=== PATIENT | female | born 1940 | race Caucasian/White ===

== ENCOUNTER → 2024-03-31 10:52 | Outpatient (REF) | payer MEDICARE, BC, SELFPAY ==
[2024-03-31 11:38] LABS: % Basophils 0.8 % (0-2); % Immature Granulocytes 0.3 % (0-0.5); % Lymphocytes 19.1 % (20.5-51.1); % Monocytes 10.5 % (1.7-9.3); % Neutrophils 66.3 % (42.2-75.2); Absolute Eosinophils 0.1 10^3/uL (0-0.7); Absolute Lymphocytes 0.7 10^3/uL (1.2-3.4); Absolute Monocytes 0.4 10^3/uL (0.1-0.6); Absolute Neutrophils 2.4 10^3/uL (1.4-6.5); Hematocrit 46.6 % (37.0-47.0); Hemoglobin 15.6 g/dL (12.0-16.0); Mean Corp Hgb Conc. 33.5 g/dL (33.0-37.0); Mean Corpuscular Hgb 31.3 pg (27.0-31.0); Mean Corpuscular Volume 93.4 fL (81.0-99.0); Mean Platelet Volume 12.2 fL (7.4-10.4); Nucleated Red Blood Cells % 0 %; Platelet Count 119 10^3/uL (130-400); Red Blood Cell Count 4.99 10^6/uL (4.20-5.40); Red Cell Dist. Width 14.6 % (11.5-14.5); White Blood Cell Count 3.6 10^3/uL (4.8-10.8)
[2024-03-31 11:50] LABS: INR 1.04; PT 13.4 Sec (11.4-14.6)
[2024-03-31 12:15] LABS: Glycohemoglobin (HgbA1c) 5.7 % (4.0-5.6)
[2024-03-31 12:58] LABS: ALT (SGPT) 28 U/L (0-35); AST (SGOT) 40 U/L (14-36); Albumin 4.8 g/dl (3.5-5.0); Alkaline Phosphatase 141 U/L (38-126); Blood Urea Nitrogen 16 mg/dl (7-17); Calcium 9.6 mg/dl (8.4-10.2); Carbon Dioxide 28 mmol/L (22-30); Chloride 99 mmol/L (98-107); Glucose 101 mg/dl (70-99); HDL Cholesterol 84 mg/dl; LDL Cholesterol, Calculated 132 mg/dl; Potassium 4.2 mmol/L (3.5-5.1); Sodium 138 mmol/L (135-145); Total Cholesterol 240 mg/dl (50-199); Total Protein 7.8 g/dl (6.3-8.2); Triglyceride 123 mg/dl (10-149); Very Low Density Lipoprotein 24 mg/dl (0-30); eGFR > 60.00
[2024-03-31 13:18] LABS: TSH Reflex To Free T4 4.02 uIU/ml (0.47-4.68)
== END ==
LOC: REG 10:52
PROVIDERS: ATTENDING PHYSICIAN Family Medicine
DX: K70.30 Alcoholic cirrhosis of liver without ascites (principal); D69.6 Thrombocytopenia, unspecified; R73.03 Prediabetes; N28.9 Disorder of kidney and ureter, unspecified; E78.00 Pure hypercholesterolemia, unspecified; E03.9 Hypothyroidism, unspecified
CPT/HCPCS: 36415; 80053; 80061; 83036; 84443; 85025; 85610

== ENCOUNTER 2024-04-15 20:10 | Inpatient (IN) | payer MEDICARE, BC, SELFPAY ==
[2024-04-15] VITALS (7 sets, daily range): BP systolic 103–152; BP diastolic 54–82; BMI 31.1; BMI 31.2
[2024-04-15] MEDS: DUONEB 3 ML INH ×2 (17:39→21:47)
--- NOTE | 2024-04-15 17:40 | ED.GENMED ---
History of Present Illness
General
Chief Complaint: Cough
Time Seen by Provider: 04/15/24 17:16
Travel History
Have you had any contact with someone who has COVID-19?: No
Do you have any symptoms of coronavirus? Fever > 100 degrees, chills, cough, shortness of breath, sore throat, loss of taste or smell, muscle aches, or headache?: No
History of Present Illness
History of Present Illness:
83-year-old female with history of COPD and hypothyroidism presents to the emergency department for evaluation of shortness of breath over the past 3 to 4 days. She notes that the symptoms began with a fever that is since resolved. Cough is
generally nonproductive. She does admit that she has been feeling depressed for some time and has not been taking any of her medications as she is supposed to. She feels generally weak and fatigued. Her daughter is concerned that she has been
noncompliant with her home medications, apparently she did not answer the phone today and thus the daughter went to visit her and noted that she was visibly short of breath. She was given a DuoNeb and 10 mg of dexamethasone IV prior to arrival in
the ER. Patient denies any SI or HI
Past History
Past History
ED Past Medical History: HTN, Hypercholesterolemia and Other (Cirrhosis)
ED Past Surgical History: Other (Noncontributory)
Social History
Tobacco: Non-smoker
Alcohol: None
Drug: None
Personal:
Living: with family
Employment: Retired
Family History
Family History: Other (Noncontributory)
Review of Systems
Review of Systems
Allergies reviewed?: Yes
All Other Systems: ROS reviewed and negative except as documented in HPI and ROS
Phy Exam
Physical Exam
Physical Exam:
GEN: Well appearing, NAD, WDWN
Eyes: PERRLA, EOMs intact, no scleral icterus
HENT: NCAT, oral mucosa moist
Lungs: Tachypneic, no accessory muscle use, coarse expiratory wheezes heard throughout all lung randolph
Cardiac: RRR, no M/R/G, no peripheral edema. Radial pulses 2+ bilat
Abdomen: S, NT, ND, NABS, no masses or hepatosplenomegaly
Neuro: AO x 3, no focal deficits to BUE/BLE, normal sensation throughout
MSK: No gross deformity or ecchymosis. No edema. No digital clubbing
Skin: No rashes, petechiae. Normal color, no pallor or jaundice.
Psych: Calm, cooperative, proper hygiene
Course
Orders/Labs/Results
Orders:
Orders
04/15/24 17:32
Ipratropium/Albuterol Sulfate [Duoneb] 3 ml INH R NOW ONE
04/15/24 17:33
CR Chest - 2 Views Urgent
Comment:
Reason For Exam: SOB
04/15/24 17:37
COVID-19 Antigen Urgent
Source: Nasal Swab
Complete Blood Count/With Diff Urgent
Comprehensive Metabolic Panel Urgent
Influenza A+B Rapid Molecular Urgent
GILBERTO Source: Nasal Swab
Specimen Description:
Abnormal Lab Results
04/15/24
17:37
MCH 31.5 H pg
(27.0-31.0)
RDW 14.6 H %
(11.5-14.5)
MPV 12.9 H fL
(7.4-10.4)
Abs Immat Gran (auto) 0.1 H 10^3/uL
(0-0.05)
Absolute Neuts (auto) 9.2 H 10^3/uL
(1.4-6.5)
Absolute Lymphs (auto) 0.6 L 10^3/uL
(1.2-3.4)
Immature Gran % 0.9 H %
(0-0.5)
Neutrophils % 87.2 H %
(42.2-75.2)
Lymphocytes % 5.7 L %
(20.5-51.1)
Sodium 132 L mmol/L
(135-145)
Chloride 93 L mmol/L
(98-107)
BUN 25 H mg/dl
(7-17)
Glucose 105 H mg/dl
(70-99)
AST 87 H U/L
(14-36)
ALT 46 H U/L
(0-35)
Alkaline Phosphatase 143 H U/L
(38-126)
04/15/24 17:37
04/15/24 17:37
Vital Signs
Initial and Last Documented VS:
Initial Vital Signs
Temp Pulse Resp BP Pulse Ox
98.4 F 97 18 152/77 95
04/15/24 16:51 04/15/24 16:51 04/15/24 16:51 04/15/24 16:51 04/15/24 16:51
Last Documented Vital Signs
Temp Pulse Resp BP Pulse Ox
98.4 F 92 21 116/65 97
04/15/24 16:51 04/15/24 18:15 04/15/24 18:15 04/15/24 18:00 04/15/24 18:15
MDM/Problems Addressed
MDM/Problems Addressed:
83-year-old female presenting with a COPD exacerbation evidenced by wheezing, likely viral in nature given lack of infiltrate on chest x-ray. Patient's wheezing did improve after DuoNeb treatment after being administered prehospital DuoNeb and IV
steroids. I had a lengthy discussion with the patient and her daughter regarding discharge versus admission, while the patient is comfortable discharge home, her daughter is concerned for her visibly depressed state and medication noncompliance.
Patient denies SI or HI but is visibly withdrawn and does not wish to seek mental health help at this time. She is willing to be admitted to the hospital for further treatment of her COPD exacerbation
*Critical Care Note
Total Time (30-74mins, 75-104mins- exclusive of procedures): Not Applicable
ED Attending Note
-
Portions of this chart may have been created with voice recognition software.� Occasional wrong word or��sound alike� substitutions may have occurred due to the inherent limitations of voice recognition software.
Discharge Plan
Departure
Patient Disposition: Admit
Date of Disposition: 04/15/24
Time of Disposition: 19:07
Admit to: Med/Surg
Presentation/result/management discussed w/ accepting MD/DO: Hospitalist
Discharge Problem:
COPD exacerbation, Depression, Non compliance w medication regimen
Prescriptions:
No Action
amlodipine 5 MG tablet
5 mg PO Daily
aspirin 81 MG tablet,delayed release (DR/EC)
81 mg PO DAILY
levothyroxine 112 MCG tablet
112 mcg PO DAILY
torsemide 20 mg Tablet
10 mg PO DAILY
acetaminophen [Tylenol Extra Strength] 500 mg Tablet
1,000 mg PO DAILYPRN PRN (Reason: mild pain)
escitalopram oxalate 20 mg Tablet
20 mg PO DAILY
Trelegy Ellipta 200-62.5-25 mcg Blister With Device
1 inh INHALATION R DAILY
Patient Comments:
04/15/2024, pt. has not taken this med. recently because she has not been able to access it at home (not able to ambulate) and because of how expensive it is; prescribed 1 puff daily.
Referrals:
UNKNOWN - PT DOES,NOT KNOW [Unknown Provider] -
Interventions
Interventions:
*Risk Screen - Suicide Last Done: 04/15/24 16:51
*Neglect/Abuse Screening Last Done: 04/15/24 16:51
ED- Fall Risk Assessment Last Done: 04/15/24 16:51
ED- Pulmonary Assessment Last Done: 04/15/24 16:51
Discharge Date and Time
Print Language: [place] CITIZ[place]
[2024-04-15 17:43] LABS: % Basophils 0.4 % (0-2); % Immature Granulocytes 0.9 % (0-0.5); % Lymphocytes 5.7 % (20.5-51.1); % Monocytes 5.8 % (1.7-9.3); % Neutrophils 87.2 % (42.2-75.2); Absolute Immature Granulocytes 0.1 10^3/uL (0-0.05); Absolute Lymphocytes 0.6 10^3/uL (1.2-3.4); Absolute Monocytes 0.6 10^3/uL (0.1-0.6); Absolute Neutrophils 9.2 10^3/uL (1.4-6.5); Hematocrit 45.1 % (37.0-47.0); Hemoglobin 15.7 g/dL (12.0-16.0); Mean Corp Hgb Conc. 34.8 g/dL (33.0-37.0); Mean Corpuscular Hgb 31.5 pg (27.0-31.0); Mean Corpuscular Volume 90.4 fL (81.0-99.0); Mean Platelet Volume 12.9 fL (7.4-10.4); Nucleated Red Blood Cells % 0 %; Platelet Count 133 10^3/uL (130-400); Red Blood Cell Count 4.99 10^6/uL (4.20-5.40); Red Cell Dist. Width 14.6 % (11.5-14.5); White Blood Cell Count 10.5 10^3/uL (4.8-10.8)
[2024-04-15 17:58] LABS: COVID-19 Antigen Negative (Negative)
[2024-04-15 18:00] LABS: ALT (SGPT) 46 U/L (0-35); AST (SGOT) 87 U/L (14-36); Albumin 4.2 g/dl (3.5-5.0); Alkaline Phosphatase 143 U/L (38-126); Blood Urea Nitrogen 25 mg/dl (7-17); Calcium 9.3 mg/dl (8.4-10.2); Carbon Dioxide 25 mmol/L (22-30); Chloride 93 mmol/L (98-107); Estimated Creatinine Clearance 50 ml/min; Glucose 105 mg/dl (70-99); Potassium 3.8 mmol/L (3.5-5.1); Sodium 132 mmol/L (135-145); Total Bilirubin 1.1 mg/dl (0.2-1.3); Total Protein 7.5 g/dl (6.3-8.2); eGFR > 60.00
--- NOTE | 2024-04-15 19:17 | HPS.HSE ---
Addendum entered and electronically signed by Hector Sagastume DO 04/15/24 20:49:
Patient seen and examined independently. Agree with findings and plan as set forth by CARRILLO Miller.
Patient is an 83y F with PMH significant for COPD, hypertension, CKD III and depression who presents to ED complaining of fatigue, SOB and audible wheezing over the past 3-4 days. Patient states that she initially started with warm, flushed
feeling on Wednesday. She had diffuse muscle and joint aches and states that she was unable to get out of bed. Patient took some Tylenol and notes that she then broke into a sweat. She has not had further joint / muscle pains or apparent fevers
since that time. Patient continued to remain in bed for the past several days however. She states that she has not been taking her usual medications including her inhalers. She has not been eating / drinking much.
Patient admits to depressed mood.
She has chronic post-nasal drip. No significant cough. No other current complaints or concerns.
Ass:
COPD with Acute Exacerbation
Hypertension
Anxiety / Depression
CKD III
Hepatic Cirrhosis
Chronic Alcohol Use Disorder
Hypothyroidism
Obesity
Plan:
Admit for further evaluation and treatment.
IV steroids, nebs, O2 as needed, etc.
Consider CT chest / Pulm eval if wheezing persists despite steroid therapy.
Resume usual outpatient medications that patient has been without for the past 5 days.
Psych evaluation for significant depression / med adjustments.
Follow for clinical improvement.
Addendum entered and electronically signed by CARRILLO Miller 04/15/24 20:37:
in pt tele
Original Note:
Family Physician
-
Family Physician: Quincy Phelps Jr.
Chief Complaint
-
Shortness of breath, weakness, wheezing, chills
History of Present Illness
83-year-old female from home, where she lives alone. Complaining of shortness of breath/wheezing over the past 5 days . She states she had chills and put on her finals on Wednesday a.m. then took Tylenol and broke out in a sweat. States she has
been having increased postnasal drip causing a dry cough. She has been so tired that she has not gotten out of bed to take her medications including her Trelegy and albuterol along with Lexapro for the past 5 days. She reports a nonproductive
cough with history of COPD and feeling weak and fatigued. Reports her baseline oxygen is usually 93-94%. En route to the ER by EMS she was given DuoNeb and 10 mg dexamethasone IV. She did not answer her phone today so she went over to visit her.
She reports increased depression since the beginning of March when it would have been her 64nd anniversary. She feels it is worse than it normally is. She has missed her Lexapro for the past 5 days and has not had an adjustment in many many years
that she states. She denies suicidal ideation.
PMH HTN, HLD, COPD, ex-smoker, cirrhosis of liver, depression, Moderate chronic bilateral renal disease/CKD 3 A, AAA, 4.3 cm 01/04/2023, parathyroid adenoma with parathyroidectomy, hypothyroidism, osteoporosis, history of fractures, narrow angle
glaucoma, obesity,
Medical History
Past Medical History
Past Medical History: Reports Other
Additional Past Medical History:
HTN
HLD
COPD
Ex-smoker quit age 62 prior 40-year 1 pack a day
Cirrhosis of liver
Alcohol use drinks 1 martini vodka and remove at night has not had any in 5 days
Depression
Moderate to severe hepatic cirrhosis
CKD 3A
Moderate chronic bilateral renal disease
Fusiform infrarenal abdominal aortic aneurysm 4.2 cm
Parathyroid adenoma with parathyroidectomy
Hypothyroidism
Osteoporosis
history of fractures
narrow angle glaucoma
Obesity
Past Surgical History: Reports Other
Additional Past Surgical History:
Umbilical hernia repair 1960s
Left foot reconstruction December 2010
Bilateral foot surgeries x 4 [id number]
Tonsillectomy adenoidectomy as child
Parathyroidectomy
Social History
Tobacco: Former Smoker (41 pack a day quit age 62)
Alcohol: Daily (1 martini with vodka and Vermouth nightly last drink was 5 days ago 04/10/2024)
Drug: None
Personal: (2 years)
Living: Alone
Employment: Retired
Family History
Family History: Other (Father abdominal aortic aneurysm, ascending aortic aneurysm , mother OR)
Allergies / Home Medications
Allergies reflects when Allergies were last updated in [facility].
Home Medications with original date entered in [facility]
Allergy/Medication List:
Allergies
Allergy/AdvReac Type Severity Reaction Status Date / Time
Sulfa (Sulfonamide Allergy 'almost Verified 04/15/24 16:51
Antibiotics) '
Home Medications
amlodipine 5 mg tablet 5 mg PO Daily 02/01/10
aspirin 81 mg tablet,delayed release 81 mg PO DAILY 08/07/11
levothyroxine 112 mcg tablet 112 mcg PO DAILY 08/07/11
acetaminophen 500 mg tablet (Tylenol Extra Strength) 1,000 mg PO DAILYPRN PRN mild pain 04/15/24
escitalopram oxalate 20 mg tablet 20 mg PO DAILY 04/15/24
fluticasone fur. 200 mcg-umeclid 62.5 mcg-vilant 25 mcg inhalat.powder (Trelegy Ellipta) 1 inh inhalation R DAILY 04/15/24
torsemide 20 mg tablet 10 mg PO DAILY 04/15/24
Review of Systems
-
History Source: Patient and Family (Daughter Hemalatha at bedside)
A 12 point ROS was completed and negative except as noted: Yes
Constitutional: Reports Fatigue and Chills
EENT: Reports Other (Postnasal drip); Denies Sore Throat or Runny Nose
Respiratory: Reports Cough (Nonproductive) and Trouble Breathing (Wheezing)
Cardiac: Denies Chest Pain, Diaphoresis, Palpitations or Syncope
Abdomen/GI: Denies Abdominal Pain, Nausea, Vomiting, Diarrhea, Constipated or Bloody Stools
: Denies Dysuria, Frequency, Flank Pain, Incontinence or Difficulty Voiding
Musculoskeletal: Denies Joint Pain or Edema
Skin: Denies Itching or Rash
Neurological: Reports Weakness (Generalized); Denies Dizzy or Headache
Endocrine: Reports No Symptoms
Hematologic/Lymphatic: Reports No Symptoms
Psych: Reports Calm
Physical Exam
Vital Signs
Vital Signs
Temp Pulse Resp BP Pulse Ox
98.4 F 92 21 116/65 97
04/15/24 16:51 04/15/24 18:15 04/15/24 18:15 04/15/24 18:00 04/15/24 18:15
Physical Exam
General: Conversant, Chills and Obese; No Pain
HEENT: NormoCephalic, Anicteric, PERRLA and No Ptosis
Respiratory: Wheezes (Diffuse throughout both lung randolph expiratory)
Cardiac: S1/S2 and Regular Rhythm; No Murmur, Rub, Gallop or Peripheral Edema
Breast: Deferred by me
GI: Soft, Non Tender, Non Distended, Normal Bowel Sounds and No Hepatosplenomegaly
Rectal: Deferred by Provider
Genito-urinary: Deferred by me
Musculoskeletal: No Clubbing, Cyanosis and No Edema
Skin: Warm and Dry; No Rash or Jaundice
Neuro: AO x 3, No Motor Deficits, Nonfocal/grossly intact, Cranial Nerves Intact and Tremors (Slight tremors to hands); No DTR's Intact & Symmetrical, Slurred Speech or Facial Droop
Psych: Calm
Laboratory Results
-
04/15/24 17:37
04/15/24 17:37
Laboratory Results
Total Bilirubin 1.1 mg/dl (0.2-1.3) 04/15/24 17:37
AST 87 U/L (14-36) H 04/15/24 17:37
ALT 46 U/L (0-35) H 04/15/24 17:37
Alkaline Phosphatase 143 U/L (38-126) H 04/15/24 17:37
Data Reviewed
-
Diagnostic Radiology: Report Reviewed by me
Lab Data: Labs Reviewed by me
Impression/Plan
-
Impression/plan:
Inpatient MedSurg
#Acute on chronic COPD exacerbation
#Ex-smoker
97% RA, HR 92, 116/65
COVID/Flu negative
-Patient follows with Dr. Ibrahim pulmonary
-IV Decadron 10 mg given by EMS, continue Decadron 4 mg every 8 hours
-Continue DuoNebs scheduled and as needed
-Resume patient's Trelegy or equivalent
-PT/OT/case management eval
CXR: No acute cardiopulmonary disease
Moderate tortuosity and calcific atherosclerotic plaque in the thoracic aorta
#Acute on Chronic depression
Denies suicide ideation
-Non compliance with antidepressant Lexapro 20 mg daily x 5 days
-Resume Lexapro 20 mg daily
-Consult psychiatry as patient has had increased depression on 20 mg Lexapro has not had increase in dose in many years
#Daily alcohol use
#Cirrhosis /chronic transaminitis
-Drinks 1 martini with vodka/Vermouth nightly
Last drink was 04/10/2024 5 days ago
-cessation advised
-MSAS screen with protocol, IV thiamine, IV folate
-Follow CMP
Ultrasound abdomen complete January 04, 2023
1. Moderate to severe hepatic cirrhosis
2. Moderate chronic bilateral renal disease
3. Fusiform infrarenal abdominal aortic aneurysm 4.2 cm
#CKD 3 A
Creat 0.9, CrCl 50
Per ultrasound 01/04/2023 moderate chronic bilateral renal disease
#HTN-benign
BP 116/65
-Resume amlodipine 5 mg, torsemide 10 mg daily with hold parameters
-Patient takes prophylactic aspirin 81 mg daily
2D echo 01/06/2020: EF 55 to 60%, normal LVS LVSF, mild LVH, mild to moderate MR, moderate aortic regurg
#Hx Fusiform infrarenal abdominal aortic aneurysm 4.2 cm per abdomen ultrasound 01/04/2023
#HLD
No reported meds
#Hypothyroidism
#Parathyroid adenoma with parathyroidectomy
-Resume levothyroxine 112 mcg daily
#Obesity due to exccess calorie consumption - BMI 31kg
low fat diet , wt loss recommended
#Osteoporosis-continue Tylenol as needed daily
#Hx of fractures
#Narrow angle glaucoma
DVT prophylaxis
Subcu Lovenox
DNR per patient with daughter Hemalatha present
--- NOTE | 2024-04-15 21:37 | PTCARENOTE ---
Pt arrived from ED via stretcher and ambulated w/ rolling walker to bed. Pt is AAOx3, VSS, w/o complaints of pain. Pt is resting comfortably w/ call miner within reach.
[2024-04-15] MEDS: DUONEB INH (21:38)
[2024-04-15] MEDS: TYLENOL 650 MG PO (21:57)
[2024-04-15 22:01] LABS: INR 1.06; PT 13.6 Sec (11.4-14.6)
[2024-04-15 22:02] LABS: APTT 35.7 Sec (23.4-35.0)
[2024-04-15 22:09] LABS: Erythrocyte Sed Rate 39 mm/hour (0-20)
[2024-04-15] MEDS: DECADRON 4 MG IV (22:15)
[2024-04-15 22:17] LABS: GGTP 233 U/L (12-43); Magnesium 2.1 mg/dl (1.6-2.3); Phosphorus 3.1 mg/dl (2.5-4.5)
[2024-04-15 22:23] LABS: B-Hydroxybutyrate 0.26 mmol/L (0.02-0.27)
[2024-04-16] VITALS (8 sets, daily range): BP systolic 100–141; BP diastolic 59–83; PULSE 88; O2SAT 93
[2024-04-16] MEDS: DECADRON 4 MG IV ×3 (05:07→21:15)
[2024-04-16] MEDS: SYNTHROID 112 MCG PO (05:08)
[2024-04-16 06:12] LABS: Urine Albumin Negative (Neg - Trace); Urine Bilirubin Negative (Negative); Urine Character Clear (Clear); Urine Color Yellow; Urine Glucose Negative (Negative); Urine Ketone Negative (Negative); Urine Leukocyte Negative (Negative); Urine Nitrite Negative (Negative); Urine Occult Blood Negative (Negative); Urine Urobilinogen Negative (Neg - 1+)
[2024-04-16] MEDS: SPIRIVA RESPIMAT 2.5 MCG 2 PUFF INH (06:30)
[2024-04-16] MEDS: DUONEB 3 ML INH (06:30)
[2024-04-16] MEDS: SYMBICORT 160/4.5 MCG INHALER 2 PUFF INH ×2 (06:31→19:21)
[2024-04-16 07:56] LABS: Hematocrit 44.1 % (37.0-47.0); Hemoglobin 15.1 g/dL (12.0-16.0); Mean Corp Hgb Conc. 34.2 g/dL (33.0-37.0); Mean Corpuscular Hgb 30.7 pg (27.0-31.0); Mean Corpuscular Volume 89.6 fL (81.0-99.0); Mean Platelet Volume 12.7 fL (7.4-10.4); Nucleated Red Blood Cells % 0 %; Platelet Count 108 10^3/uL (130-400); Red Blood Cell Count 4.92 10^6/uL (4.20-5.40); Red Cell Dist. Width 14.1 % (11.5-14.5); White Blood Cell Count 6.8 10^3/uL (4.8-10.8)
[2024-04-16 08:01] LABS: ALT (SGPT) 53 U/L (0-35); AST (SGOT) 81 U/L (14-36); Albumin 3.8 g/dl (3.5-5.0); Alkaline Phosphatase 144 U/L (38-126); Blood Urea Nitrogen 29 mg/dl (7-17); Calcium 9.3 mg/dl (8.4-10.2); Carbon Dioxide 23 mmol/L (22-30); Chloride 94 mmol/L (98-107); Estimated Creatinine Clearance 55 ml/min; Glucose 174 mg/dl (70-99); HDL Cholesterol 36 mg/dl; LDL Cholesterol, Calculated 129 mg/dl; Sodium 131 mmol/L (135-145); Total Bilirubin 0.7 mg/dl (0.2-1.3); Total Cholesterol 199 mg/dl (50-199); Total Protein 6.9 g/dl (6.3-8.2); Triglyceride 174 mg/dl (10-149); Very Low Density Lipoprotein 34 mg/dl (0-30); eGFR > 60.00
[2024-04-16 08:35] LABS: Band Neutrophils 14 % (0-3); Lymphocytes 8 % (20-51); Monocytes 3 % (2-9); Platelets Checked Yes; Segmented Neutrophils 75 % (42-75)
[2024-04-16 08:36] LABS: Normal RBC Morphology Yes; Total Cells Counted 100
[2024-04-16] MEDS: NORVASC PO (08:50)
[2024-04-16] MEDS: ASPIR LOW (ENTERIC COATED) 81 MG PO (08:51)
[2024-04-16] MEDS: THIAMINE INJECTION 200 MG IV ×2 (08:51→21:15)
[2024-04-16] MEDS: FOLVITE 1 MG PO (08:51)
[2024-04-16] MEDS: LEXAPRO 20 MG PO (08:51)
[2024-04-16] MEDS: DEMADEX 10 MG PO (08:51)
[2024-04-16] MEDS: FLUSH (NSS) 1 FLUSH IV ×2 (08:53→13:35)
--- NOTE | 2024-04-16 10:18 | W.PN.HOSP.TC ---
Today's Communication/Plan
-
see bold
Assessment / Plan
Assessment / Plan
Gen: NAD, Awake and alert
Eyes: EOMI, PERRLA, no scleral icterus.
Neck: supple.
CV: RRR, +S1/S2, no m/r/g.
Resp: CTAB, no rales, wheezes, or rhonchi.
Abd: +BS, soft, NT, ND
Skin: No rashes.
Neuro: CN 2-12 intact, non-focal.
Psych: depressed affect.
CXR: No acute cardiopulmonary disease
Acute COPD exacerbation:
-saturating well on RA
-h/o tobacco abuse disorder
-COVID/Flu negative
-cont IV decadron, likely transition to Prednisone tomorrow
-cont Spiriva/Symbicort
-Albuterol PRN
Acute on chronic depression:
-Denies suicide ideation
-Non compliance with antidepressant Lexapro 20 mg daily x 5 days
-Lexapro now resumed
-Consult psychiatry
Other problems:
Chronic alcoholic cirrhosis: cont thiamine/folate/PRN ativan. Encourage EtOH cessation.
Essential HTN: cont Norvasc
h/o Fusiform infrarenal abdominal aortic aneurysm 4.2 cm per abdomen ultrasound 01/04/2023
Hyperlipidemia
Hypothyroidism: cont Levoxyl
h/o Parathyroid adenoma with parathyroidectomy
Obesity due to excess calories: Encourage weight loss. Affects all aspects of care.
Osteoporosis with h/o fxs
DNR/Lovenox
Anticipated Discharge: Within 24 hours
Subjective/Interval History
-
Date of Service: April 16, 2024
Reports SOB has greatly improved since admission.
Objective Data
-
Labs:
Laboratory Results
04/16/24
06:59
WBC 6.8
Hgb 15.1
Hct 44.1
Plt Count 108 L
Sodium 131 L
Potassium 4.0
Chloride 94 L
Carbon Dioxide 23
BUN 29 H
Creatinine 0.8
Glucose 174 H
Calcium 9.3
Total Bilirubin 0.7
AST 81 H
ALT 53 H
Alkaline Phosphatase 144 H
Vital Signs:
Vital Signs
Temp Pulse Resp BP Pulse Ox
97.6 F 92 18 100/71 94
04/16/24 07:30 04/16/24 08:51 04/16/24 07:30 04/16/24 08:51 04/16/24 10:00
I&O
04/15/24 04/16/24 04/17/24
06:59 06:59 06:59
Intake Total 480 / 480
Balance 480 / 480
[2024-04-16] MEDS: VENTOLIN NEBULES 2.5 MG INH ×4 (11:10→23:35)
--- NOTE | 2024-04-16 11:53 | W.PN.UPDATE ---
Update Note
Progress Note Update
Psychiatric evaluation dictated.
Patient admits to being depressed, related to cleaning out her 's closet and being reminded of her 6o year marriage, he about 2 years ago. Denies hopelessness or suicidal thoughts. She has been on Lexapro 20 mg daily, apparently has not
taken it for about 5 days. She admits to drinking 1 vodka martini daily for many years, even when was alive. It certainly could be more, her GGT was 233.
Affect depressed, mood sad, cries when she talks about . No significant cognitive loss noted.
For now we will F/U.
Would continue the Lexapro 20, watch for hyponatremia as sodium is 131.
Psychotherapy could also help.
--- NOTE | 2024-04-16 11:58 | CM ---
CM met with pt bedside
Pt resides alone in a ranc[place] with 1STE
P notes independence, drives+
Pt has a RW and SPC for use as needed
Pt has hx with [facility] (agency unknown) and hx at [facility]
PCP- Quincy Phelps
Rx- [facility]
PT/OT following with recommendations of [facility]
Referral made to [facility] per her request
CM consult for D/A use- pt notes to have a daily martini
Pt notes she has stopped drinking and declined [facility] referral
Discharge Disposition- home with [facility] ([facility] pending)
[2024-04-16] MEDS: LOVENOX 40 MG SC (17:59)
[2024-04-16] MEDS: BENADRYL 25 MG PO (22:19)
[2024-04-16] MEDS: TYLENOL 650 MG PO (22:22)
[2024-04-17] VITALS (7 sets, daily range): BP systolic 116–153; BP diastolic 58–86
[2024-04-17] MEDS: SYNTHROID 112 MCG PO (06:06)
[2024-04-17] MEDS: DECADRON 4 MG IV ×3 (06:07→21:14)
[2024-04-17 06:24] LABS: % Basophils 0.4 % (0-2); % Immature Granulocytes 1.9 % (0-0.5); % Lymphocytes 1.7 % (20.5-51.1); % Monocytes 5.1 % (1.7-9.3); % Neutrophils 90.9 % (42.2-75.2); Absolute Basophils 0.1 10^3/uL (0-0.2); Absolute Immature Granulocytes 0.3 10^3/uL (0-0.05); Absolute Lymphocytes 0.2 10^3/uL (1.2-3.4); Absolute Monocytes 0.7 10^3/uL (0.1-0.6); Absolute Neutrophils 12.2 10^3/uL (1.4-6.5); Hemoglobin 15.4 g/dL (12.0-16.0); Mean Corpuscular Hgb 31.3 pg (27.0-31.0); Mean Corpuscular Volume 89.4 fL (81.0-99.0); Mean Platelet Volume 13.4 fL (7.4-10.4); Nucleated Red Blood Cells % 0 %; Platelet Count 127 10^3/uL (130-400); Red Blood Cell Count 4.92 10^6/uL (4.20-5.40); Red Cell Dist. Width 14.2 % (11.5-14.5); White Blood Cell Count 13.4 10^3/uL (4.8-10.8)
--- NOTE | 2024-04-17 06:42 | PTCARENOTE ---
Pt oob to bathroom, Hr increased to 149s. Pt short of breath, labored breathing. assisted pt back top bed, HR decreased to 110s. call miner within reach.
[2024-04-17 06:57] LABS: ALT (SGPT) 105 U/L (0-35); AST (SGOT) 193 U/L (14-36); Alkaline Phosphatase 178 U/L (38-126); Blood Urea Nitrogen 35 mg/dl (7-17); Calcium 9.9 mg/dl (8.4-10.2); Carbon Dioxide 24 mmol/L (22-30); Chloride 93 mmol/L (98-107); Estimated Creatinine Clearance 44 ml/min; Glucose 156 mg/dl (70-99); Potassium 4.5 mmol/L (3.5-5.1); Sodium 133 mmol/L (135-145); Total Bilirubin 0.7 mg/dl (0.2-1.3); Total Protein 7.2 g/dl (6.3-8.2)
[2024-04-17] MEDS: SPIRIVA RESPIMAT 2.5 MCG 2 PUFF INH (07:32)
[2024-04-17] MEDS: SYMBICORT 160/4.5 MCG INHALER 2 PUFF INH ×2 (07:32→20:56)
[2024-04-17] MEDS: VENTOLIN NEBULES 2.5 MG INH ×4 (07:32→20:57)
[2024-04-17] MEDS: ASPIR LOW (ENTERIC COATED) 81 MG PO (09:13)
[2024-04-17] MEDS: DEMADEX 10 MG PO (09:13)
[2024-04-17] MEDS: NORVASC 5 MG PO (09:14)
[2024-04-17] MEDS: LEXAPRO 20 MG PO (09:14)
[2024-04-17] MEDS: FOLVITE 1 MG PO (09:14)
[2024-04-17] MEDS: THIAMINE INJECTION 200 MG IV ×2 (09:15→21:12)
--- NOTE | 2024-04-17 11:16 | W.PN.HOSP.TC ---
Today's Communication/Plan
-
Add doxy
IV steroids
monitor HR
Assessment / Plan
Assessment / Plan
Gen: NAD, Awake and alert
Eyes: EOMI, PERRLA, no scleral icterus.
Neck: supple.
CV: RRR, +S1/S2, no m/r/g.
Resp: +exp wheezing b/l
Abd: +BS, soft, NT, ND
Skin: No rashes.
Neuro: CN 2-12 intact, non-focal.
Psych: depressed affect.
CXR: No acute cardiopulmonary disease
Acute COPD exacerbation:
-saturating well on RA
-h/o tobacco abuse disorder
-COVID/Flu negative
-cont IV decadron, likely transition to Prednisone soon
-cont Spiriva/Symbicort
-Albuterol PRN
-with cough. add doxy.
Acute on chronic depression:
-Denies suicide ideation
-Non compliance with antidepressant Lexapro 20 mg daily x 5 days
-Lexapro now resumed
-Consulted psychiatry
Other problems:
Chronic alcoholic cirrhosis: cont thiamine/folate/PRN ativan. Encourage EtOH cessation.
Essential HTN: cont Norvasc
h/o Fusiform infrarenal abdominal aortic aneurysm 4.2 cm per abdomen ultrasound 01/04/2023
Hyperlipidemia
Hypothyroidism: cont Levoxyl
h/o Parathyroid adenoma with parathyroidectomy
Obesity due to excess calories: Encourage weight loss. Affects all aspects of care.
Osteoporosis with h/o fxs
DNR/Lovenox
Anticipated Discharge: Within 24 hours
Subjective/Interval History
-
Date of Service: April 17, 2024
Remains with cough
states breathing has improved
Objective Data
-
Labs:
Laboratory Results
04/17/24
05:15
WBC 13.4 H
Hgb 15.4
Hct 44.0
Plt Count 127 L
Sodium 133 L
Potassium 4.5
Chloride 93 L
Carbon Dioxide 24
BUN 35 H
Creatinine 1.0
Glucose 156 H
Calcium 9.9
Total Bilirubin 0.7
AST 193 H
ALT 105 H
Alkaline Phosphatase 178 H
Vital Signs:
Vital Signs
Temp Pulse Resp BP Pulse Ox
98.1 F 102 16 130/80 93
04/17/24 10:45 04/17/24 10:45 04/17/24 10:45 04/17/24 10:45 04/17/24 10:45
I&O
04/16/24 04/17/24 04/18/24
06:59 06:59 06:59
Intake Total 480 / 480 720 / 720
Balance 480 / 480 720 / 720
Data Reviewed
-
Total Time Spent with Patient (in minutes): 55
[2024-04-17] MEDS: VIBRAMYCIN 100 MG PO ×2 (12:10→21:11)
[2024-04-17] MEDS: LOVENOX 40 MG SC (18:28)
[2024-04-18] MEDS: TYLENOL 650 MG PO (01:05)
[2024-04-18 04:00] VITALS: BP 121/76
[2024-04-18] MEDS: DECADRON 4 MG IV ×2 (05:23→22:16)
[2024-04-18] MEDS: SYNTHROID 112 MCG PO (05:23)
[2024-04-18 06:37] LABS: Hematocrit 44.2 % (37.0-47.0); Hemoglobin 15.2 g/dL (12.0-16.0); Mean Corp Hgb Conc. 34.4 g/dL (33.0-37.0); Mean Corpuscular Hgb 30.8 pg (27.0-31.0); Mean Corpuscular Volume 89.7 fL (81.0-99.0); Mean Platelet Volume 13.1 fL (7.4-10.4); Nucleated Red Blood Cells % 0 %; Platelet Count 148 10^3/uL (130-400); Red Blood Cell Count 4.93 10^6/uL (4.20-5.40); Red Cell Dist. Width 14.6 % (11.5-14.5); White Blood Cell Count 17.4 10^3/uL (4.8-10.8)
[2024-04-18 07:00] VITALS: BP 137/75
[2024-04-18 07:10] LABS: ALT (SGPT) 100 U/L (0-35); AST (SGOT) 107 U/L (14-36); Albumin 3.6 g/dl (3.5-5.0); Alkaline Phosphatase 150 U/L (38-126); Blood Urea Nitrogen 32 mg/dl (7-17); Carbon Dioxide 23 mmol/L (22-30); Chloride 94 mmol/L (98-107); Estimated Creatinine Clearance 40 ml/min; Glucose 179 mg/dl (70-99); Potassium 4.1 mmol/L (3.5-5.1); Sodium 132 mmol/L (135-145); Total Bilirubin 0.8 mg/dl (0.2-1.3); Total Protein 6.6 g/dl (6.3-8.2); eGFR 50.48
[2024-04-18] MEDS: VENTOLIN NEBULES 2.5 MG INH ×4 (07:23→19:57)
[2024-04-18] MEDS: SYMBICORT 160/4.5 MCG INHALER 2 PUFF INH ×2 (07:23→19:57)
[2024-04-18] MEDS: SPIRIVA RESPIMAT 2.5 MCG 2 PUFF INH (07:23)
--- NOTE | 2024-04-18 08:00 | PN.CDI ---
CDI
- -
CDI:
Physician Documentation Request
Admit Date: 04/15/24 20:10
Dear Doctor Pio,
Please review the following and provide your response in the progress notes.
Clinical Indicators:
Pt admitted with COPD exacerbation
Sodium labs are as below / Pt with Chronic alcoholic cirrhosis
04/15/24 04/16/24 04/17/24
17:37 06:59 05:15
Sodium 132 L 131 L 133 L
04/18/24
05:43
Sodium 132 L
Based on the above, could you clarify in the progress notes, the appropriate diagnosis, if significant, that supports the above abnormalities and additional evaluation, monitoring and/or treatment rendered:
Hyponatremia
Abnormal lab value only
Other
Use of terms such as suspected, likely, concern for, or probable (associated with a specific diagnosis that is being evaluated, monitored, or treated as if it exists) are acceptable and can be coded in the inpatient setting, when documented at the
time of discharge.
Thank you,
Kari Camejo RN
CDI Specialist
[facility]
Please use your independent medical judgment in providing your response.
[2024-04-18 08:12] LABS: Absolute Neutrophils -Man Diff 16.7 10^3/uL (1.4-6.5); Band Neutrophils 15 % (0-3); Lymphocytes 2 % (20-51); Monocytes 2 % (2-9); Normal RBC Morphology Yes; Platelets Checked Yes; Segmented Neutrophils 81 % (42-75)
[2024-04-18 08:13] LABS: Total Cells Counted 100
[2024-04-18] MEDS: NORVASC 5 MG PO (09:26)
[2024-04-18] MEDS: FOLVITE 1 MG PO (09:27)
[2024-04-18] MEDS: ASPIR LOW (ENTERIC COATED) 81 MG PO (09:27)
[2024-04-18] MEDS: VIBRAMYCIN 100 MG PO ×2 (09:27→22:14)
[2024-04-18] MEDS: LEXAPRO 20 MG PO (09:27)
[2024-04-18] MEDS: THIAMINE INJECTION 200 MG IV ×2 (09:27→22:15)
[2024-04-18] MEDS: FLUSH (NSS) 2 FLUSH IV ×2 (09:27→09:29)
[2024-04-18] MEDS: DEMADEX PO (09:28)
[2024-04-18 11:10] VITALS: BP 140/70
--- NOTE | 2024-04-18 11:21 | W.PN.UPDATE ---
Update Note
Progress Note Update
Patient seen at bedside, chart reviewed, discussed with staff. Ms. Munoz tells me she feels her mood has improved some and feels less depressed. She does have concerns regarding her breathing even though she has been told it is improving. She
denies any ETOH withdrawal symptoms. She again denies drinking ETOH in excess although family has reportedly raised concerns. She admits forgetting her daily medications on occasions and realizes she feels depressed when she does this. Denies any
SI/SB.
Impression/Plan: Major depressive disorder, recurrent; R/O Alcohol Use disorder - Would continue Lexapro 20mg. We discussed psychotherapy as a useful tool and she will look into this. She does understand she should abstain from ETOH use and does
not feel she needs assistance to do so at this time.
--- NOTE | 2024-04-18 13:14 | W.PN.HOSP.TC ---
Today's Communication/Plan
-
Decrease steroids
Continue with bronchodilators
Continue Lexapro
Bowel regimen
Start disposition efforts
Assessment / Plan
Assessment / Plan
Gen: NAD, Awake and alert
Eyes: EOMI, PERRLA, no scleral icterus.
Neck: supple.
CV: RRR, +S1/S2, no m/r/g.
Resp: +exp wheezing b/l improvement since yesterday
Abd: +BS, soft, NT, ND
Skin: No rashes.
Neuro: CN 2-12 intact, non-focal.
Psych: depressed affect.
CXR: No acute cardiopulmonary disease
Acute COPD exacerbation:
Acute hypoxic respiratory insufficiency
-h/o tobacco abuse disorder
-COVID/Flu negative
-cont IV decadron and decrease frequency to every 12
-cont Spiriva/Symbicort
-Albuterol PRN
-Wean oxygen as tolerated. Home O2 eval prior to discharge.
-with cough. add doxy. Complete course of doxycycline
Acute on chronic depression:
-Denies suicide ideation
-Non compliance with antidepressant Lexapro 20 mg daily x 5 days
-Lexapro now resumed
-Consulted psychiatry
Other problems:
Chronic alcoholic cirrhosis: cont thiamine/folate/PRN ativan. Encourage EtOH cessation.
Essential HTN: cont Norvasc. 140/70
h/o Fusiform infrarenal abdominal aortic aneurysm 4.2 cm per abdomen ultrasound 01/04/2023
Hyperlipidemia
Hypothyroidism: cont Levoxyl
h/o Parathyroid adenoma with parathyroidectomy
Obesity due to excess calories: Encourage weight loss. Affects all aspects of care.
Osteoporosis with h/o fxs
DNR/Lovenox
PT/OT-Home health
Anticipated Discharge: Within 24 hours
Subjective/Interval History
-
Date of Service: April 18, 2024
Placed on oxygen overnight
Denies productive cough
Objective Data
-
Labs:
Laboratory Results
04/18/24
05:43
WBC 17.4 H
Hgb 15.2
Hct 44.2
Plt Count 148
Sodium 132 L
Potassium 4.1
Chloride 94 L
Carbon Dioxide 23
BUN 32 H
Creatinine 1.1 H
Glucose 179 H
Calcium 9.0
Total Bilirubin 0.8
AST 107 H
ALT 100 H
Alkaline Phosphatase 150 H
Vital Signs:
Vital Signs
Temp Pulse Resp BP Pulse Ox
98.2 F 88 16 140/70 93
04/18/24 11:10 04/18/24 11:52 04/18/24 11:52 04/18/24 11:10 04/18/24 11:52
I&O
04/17/24 04/18/24 04/19/24
06:59 06:59 06:59
Intake Total 720 / 720 855 / 855
Balance 720 / 720 855 / 855
Data Reviewed
-
Total Time Spent with Patient (in minutes): 55
[2024-04-18] MEDS: DULCOLAX 10 MG PO (13:25)
[2024-04-18] MEDS: MIRALAX 17 GRAMS PO (13:26)
--- NOTE | 2024-04-18 15:08 | CM ---
patient seen bedside.
patient continues on oxygen 2 liters, not on oxygen at home.
Plan: home, watch for oxygen needs. Denies VN needs. Daughter will transport.
[2024-04-18 16:03] VITALS: BP 113/74
[2024-04-18] MEDS: SENOKOT-S 1 TABLET PO (16:36)
[2024-04-18] MEDS: LOVENOX 40 MG SC (17:00)
[2024-04-18 19:30] VITALS: BP 97/50
[2024-04-18 23:11] VITALS: BP 126/72
[2024-04-19] VITALS (8 sets, daily range): BP systolic 119–158; BP diastolic 53–75; PULSE 65–76; O2SAT 91–92
[2024-04-19] MEDS: SYNTHROID 112 MCG PO (05:53)
[2024-04-19 08:01] LABS: Hematocrit 41.8 % (37.0-47.0); Hemoglobin 14.3 g/dL (12.0-16.0); Mean Corp Hgb Conc. 34.2 g/dL (33.0-37.0); Mean Corpuscular Hgb 30.7 pg (27.0-31.0); Mean Corpuscular Volume 89.7 fL (81.0-99.0); Mean Platelet Volume 12.5 fL (7.4-10.4); Nucleated Red Blood Cells % 0 %; Platelet Count 155 10^3/uL (130-400); Red Blood Cell Count 4.66 10^6/uL (4.20-5.40); Red Cell Dist. Width 14.5 % (11.5-14.5); White Blood Cell Count 14.2 10^3/uL (4.8-10.8)
[2024-04-19] MEDS: SYMBICORT 160/4.5 MCG INHALER 2 PUFF INH ×2 (08:18→19:22)
[2024-04-19] MEDS: VENTOLIN NEBULES 2.5 MG INH ×4 (08:18→19:21)
[2024-04-19] MEDS: SPIRIVA RESPIMAT 2.5 MCG 2 PUFF INH (08:18)
[2024-04-19 08:42] LABS: ALT (SGPT) 88 U/L (0-35); AST (SGOT) 98 U/L (14-36); Albumin 3.2 g/dl (3.5-5.0); Alkaline Phosphatase 149 U/L (38-126); Blood Urea Nitrogen 36 mg/dl (7-17); Calcium 8.9 mg/dl (8.4-10.2); Carbon Dioxide 23 mmol/L (22-30); Chloride 94 mmol/L (98-107); Estimated Creatinine Clearance 55 ml/min; Glucose 154 mg/dl (70-99); Potassium 4.2 mmol/L (3.5-5.1); Sodium 130 mmol/L (135-145); Total Bilirubin 0.7 mg/dl (0.2-1.3); Total Protein 6.1 g/dl (6.3-8.2); eGFR > 60.00
[2024-04-19 08:43] LABS: Absolute Neutrophils -Man Diff 13.4 10^3/uL (1.4-6.5); Atypical Lymphocytes 1 %; Band Neutrophils 9 % (0-3); Lymphocytes 4 % (20-51); Normal RBC Morphology Yes; Platelets Checked Yes; Segmented Neutrophils 86 % (42-75); Total Cells Counted 100
[2024-04-19] MEDS: DECADRON 4 MG IV ×2 (08:55→21:48)
[2024-04-19] MEDS: VITAMIN B1 100 MG PO ×2 (08:56→21:48)
[2024-04-19] MEDS: NORVASC 5 MG PO (08:56)
[2024-04-19] MEDS: FOLVITE 1 MG PO (08:56)
[2024-04-19] MEDS: SENOKOT-S 1 TABLET PO ×2 (08:56→16:28)
[2024-04-19] MEDS: LEXAPRO 20 MG PO (08:57)
[2024-04-19] MEDS: MIRALAX 17 GRAMS PO (08:57)
[2024-04-19] MEDS: VIBRAMYCIN 100 MG PO ×2 (08:57→21:48)
[2024-04-19] MEDS: ASPIR LOW (ENTERIC COATED) 81 MG PO (08:57)
--- NOTE | 2024-04-19 10:45 | W.PN.HOSP.TC ---
Addendum entered and electronically signed by Ubaldo Suero MD 04/19/24 11:16:
Updated daughter over the phone in detail. PT eval this morning and recommending SNF. Case management informed. Daughter agreed with discharge to SNF once ready
Original Note:
Today's Communication/Plan
-
OOB/PT
Wean o2
home o2 eval in am
IV steroids for 24h
Assessment / Plan
Assessment / Plan
Gen: NAD, Awake and alert, obese
Eyes: EOMI, no scleral icterus.
Neck: supple.
CV: RRR, +S1/S2, no m/r/g.
Resp: +exp wheezing b/l improving
Abd: +BS, soft, NT, ND
Skin: No rashes.
Neuro: CN 2-12 intact, non-focal.
Psych: depressed affect.
CXR: No acute cardiopulmonary disease
Acute COPD exacerbation:
Acute hypoxic respiratory insufficiency
-h/o tobacco abuse disorder
-COVID/Flu negative
-cont IV decadron and decrease frequency to every 12. Po steroids in am.
-cont Spiriva/Symbicort
-Albuterol PRN
-Wean oxygen as tolerated. Home O2 eval prior to discharge.
-with cough. add doxy. Complete course of doxycycline
Acute on chronic depression:
-Denies suicide ideation
-Non compliance with antidepressant Lexapro 20 mg daily x 5 days
-Lexapro now resumed
-Consulted psychiatry
Other problems:
Chronic alcoholic cirrhosis: cont thiamine/folate/PRN ativan. Encourage EtOH cessation.
Essential HTN: cont Norvasc. 135/71
h/o Fusiform infrarenal abdominal aortic aneurysm 4.2 cm per abdomen ultrasound 01/04/2023
Hyperlipidemia
Hypothyroidism: cont Levoxyl
h/o Parathyroid adenoma with parathyroidectomy
Obesity due to excess calories: Encourage weight loss. Affects all aspects of care.
Osteoporosis with h/o fxs
DNR/Lovenox
PT/OT-Home health
Anticipated Discharge: Within 24 hours
Subjective/Interval History
-
Date of Service: April 19, 2024
on 2l NC
denies cough
agreed for therapy
Objective Data
-
Labs:
Laboratory Results
04/19/24
07:15
WBC 14.2 H
Hgb 14.3
Hct 41.8
Plt Count 155
Sodium 130 L
Potassium 4.2
Chloride 94 L
Carbon Dioxide 23
BUN 36 H
Creatinine 0.8
Glucose 154 H
Calcium 8.9
Total Bilirubin 0.7
AST 98 H
ALT 88 H
Alkaline Phosphatase 149 H
Vital Signs:
Vital Signs
Temp Pulse Resp BP Pulse Ox
97.7 F 70 18 135/71 93
04/19/24 07:35 04/19/24 08:22 04/19/24 08:22 04/19/24 07:35 04/19/24 09:18
I&O
04/18/24 04/19/24 04/20/24
06:59 06:59 06:59
Intake Total 855 / 855
Balance 855 / 855
Data Reviewed
-
Total Time Spent with Patient (in minutes): 56
--- NOTE | 2024-04-19 11:20 | CM ---
Addendum entered by Gertrude Wilks 04/19/24 12:54:
SNF Referrals sent to [facility] and [facility] via [facility]
Addendum entered by Gertrude Wilks 04/19/24 11:38:
Preferences for SNF are [facility] and [facility]
Original Note:
Met with patient and her daughter at the bedside to discuss DC Planning
PT has recommended SNF for rehab; contacted OT and requested re-evaluation
Plan: if patient is agreeable will send referrals to SNF; list of facilities provided
--- NOTE | 2024-04-19 11:39 | W.PN.UPDATE ---
Update Note
Progress Note Update
patient seen chart reviewed. discussed with nursing. spoke with cm. daughter at bedside. the patient does not deny depression. .she was tearful today. a lot of anniversaries collide in the month of march to make her very sad including 's
birthday, anniversary of their marriage, mother's day . she was placed on lexapro at some point. she is not really clear whether it helped her but says 'the doctor told me to continue it...'' she had stopped taking all of her meds about a week
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 patient does have a lot of + in her life.....kids grandkids great grands. we talked about depression and its sx of which she has quite a few. she is not suicidal. if the lexapro does not work would add another antidep or switch entirely.
advised her and d to consider this if she is still so sad in a few weeks time. that said would check ecg to check qtc which can increase kamille in elderly. 20 mg is a large dose for someone in this age group.
[2024-04-19] MEDS: LOVENOX 40 MG SC (16:28)
[2024-04-20 03:00] VITALS: BP 147/79
[2024-04-20] MEDS: SYNTHROID 112 MCG PO (05:24)
[2024-04-20 07:30] VITALS: BP 124/66
[2024-04-20] MEDS: SYMBICORT 160/4.5 MCG INHALER 2 PUFF INH (07:48)
[2024-04-20] MEDS: SPIRIVA RESPIMAT 2.5 MCG 2 PUFF INH (07:48)
[2024-04-20] MEDS: VENTOLIN NEBULES 2.5 MG INH ×2 (07:48→11:49)
[2024-04-20 09:32] LABS: Blood Urea Nitrogen 40 mg/dl (7-17); Calcium 9.3 mg/dl (8.4-10.2); Carbon Dioxide 25 mmol/L (22-30); Chloride 94 mmol/L (98-107); Estimated Creatinine Clearance 63 ml/min; Glucose 151 mg/dl (70-99); Potassium 4.1 mmol/L (3.5-5.1); Sodium 132 mmol/L (135-145); eGFR > 60.00
[2024-04-20] MEDS: DECADRON 4 MG IV (09:48)
[2024-04-20] MEDS: SENOKOT-S 1 TABLET PO (09:49)
[2024-04-20] MEDS: DEMADEX 10 MG PO (09:49)
[2024-04-20] MEDS: LEXAPRO 20 MG PO (09:49)
[2024-04-20] MEDS: FOLVITE 1 MG PO (09:49)
[2024-04-20] MEDS: VITAMIN B1 100 MG PO (09:49)
[2024-04-20] MEDS: NORVASC 5 MG PO (09:49)
[2024-04-20] MEDS: ASPIR LOW (ENTERIC COATED) 81 MG PO (09:50)
[2024-04-20] MEDS: VIBRAMYCIN 100 MG PO (09:50)
[2024-04-20] MEDS: MIRALAX 17 GRAMS PO (09:51)
--- NOTE | 2024-04-20 11:04 | CM ---
Addendum entered by Cherie Bliss 04/20/24 15:00:
Patient agreeable to [facility].
Patients daughter will transport.
Patient aware she will need her Trelegy inhaler.
IMM completed.
Addendum entered by Cherie Bliss 04/20/24 14:17:
Bed available at [facility] for today.
daughter or son to transport.
[facility]
Report# [phone]

Addendum entered by Cherie Bliss 04/20/24 13:57:
No bed available at [facility].
Referrals to [facility], [facility] (no bed) and [facility].
Await responses.
Addendum entered by Cherie Bliss 04/20/24 13:18:
Await bed availability at [facility].
Spoke with [facility], await TCB.
Original Note:
Patient seen bedside with daughter Hemalatha.
Patient getting ready to ambulate to with daughter.
[facility] with no beds.
Await bed availability for [facility].
Plan: hopefully [facility] when bed available. CM will follow.
[2024-04-20 11:48] VITALS: BP 123/72
--- NOTE | 2024-04-20 11:56 | W.PN.HOSP.TC ---
Today's Communication/Plan
-
po steroids
dc to snf
Assessment / Plan
Assessment / Plan
Gen: NAD, Awake and alert, obese
Eyes: EOMI, no scleral icterus.
Neck: supple.
CV: RRR, +S1/S2, no m/r/g.
Resp: No wheezing. Significant improvement.
Abd: +BS, soft, NT, ND
Skin: No rashes.
Neuro: CN 2-12 intact, non-focal.
Psych: depressed affect.
CXR: No acute cardiopulmonary disease
Acute COPD exacerbation:
Acute hypoxic respiratory insufficiency
-h/o tobacco abuse disorder
-COVID/Flu negative
-DC IV steroids and transition to p.o. prednisone taper regimen.
-cont Spiriva/Symbicort
-Albuterol PRN
-Wean oxygen as tolerated. Home O2 eval prior to discharge. Did not qualify for home oxygen
-with cough. add doxy. Complete course of doxycycline
Acute on chronic depression:
-Denies suicide ideation
-Non compliance with antidepressant Lexapro 20 mg daily x 5 days
-Lexapro now resumed
-Consulted psychiatry
Other problems:
Chronic alcoholic cirrhosis: cont thiamine/folate/PRN ativan. Encourage EtOH cessation.
Essential HTN: cont Norvasc. 135/71
h/o Fusiform infrarenal abdominal aortic aneurysm 4.2 cm per abdomen ultrasound 01/04/2023
Hyperlipidemia
Hypothyroidism: cont Levoxyl
h/o Parathyroid adenoma with parathyroidectomy
Obesity due to excess calories: Encourage weight loss. Affects all aspects of care.
Osteoporosis with h/o fxs
Mild hyponatremia monitor
DNR/Lovenox
PT/OT-SNF. CM aware
d/w with daughter at bedside in detail
More than 30 minutes spent in discharge including
Final examination of the patient
Summarizing hospital stay
Instructions for continuing care to all relevant caregivers
Preparation of discharge records, prescriptions, and referral forms
Total time spent (in minutes): 45
Anticipated Discharge: Today
Subjective/Interval History
-
Date of Service: April 20, 2024
Sitting in chair
Improvement in breathing
Off oxygen
Objective Data
-
Labs:
Laboratory Results
04/20/24
08:36
Sodium 132 L
Potassium 4.1
Chloride 94 L
Carbon Dioxide 25
BUN 40 H
Creatinine 0.7
Glucose 151 H
Calcium 9.3
Vital Signs:
Vital Signs
Temp Pulse Resp BP Pulse Ox
97.4 F 61 16 123/72 91
04/20/24 11:48 04/20/24 11:51 04/20/24 11:51 04/20/24 11:48 04/20/24 11:51
I&O
04/19/24 04/20/24 04/21/24
06:59 06:59 06:59
Intake Total 600 / 600 480 / 480
Balance 600 / 600 480 / 480
--- NOTE | 2024-04-20 12:01 | W.DCSUMMARY ---
Discharge Summary
Discharge Data
Date of Admission: 04/15/24
Date of Discharge: 04/20/24
-
Pending Results: No
Hospital Course
83-year-old female past medical history of osteoporosis, obesity, parathyroid adenoma status post parathyroidectomy, hypothyroidism, hyperlipidemia, fusiform infrarenal AAA, hypertension, chronic alcohol cirrhosis, depression, COPD who is presenting
with shortness of breath. Patient was found to be in acute COPD exacerbation. IV steroids were started. Patient required oxygenation. Bronchodilators were started. Doxycycline was started. Patient with improvement in wheezing. Patient with
severe depression psych was consulted. Patient was restarted on Lexapro. Patient was weaned off the oxygen. IV steroids were transitioned to p.o. steroid taper regimen on discharge. Patient was eval by physical and Occupational Therapy and be
discharged to senior living facility. Patient daughter was updated about hospitalization. Will need repeat BMP to monitor sodium level.
Discharge Plan
-
Patient Disposition: [facility]/SNF
Discharge Diagnosis/Procedures: Acute COPD exacerbation
Acute hypoxic respiratory insufficiency
Acute on chronic depression
Mild hyponatremia
Condition: Fair
Diet: As tolerated
Activity: With assistance and As tolerated
Driving Restrictions: Not until seen by your Dr
Blood Work: Repeat BMP in 3-5 day via primary doctor to trend sodium level.
Referrals:
Quincy Phelps Jr., [Family Provider] -
Prescriptions:
New
polyethylene glycol 3350 [HealthyLax] 17 gram Powder In Packet
17 g PO DAILY 1 Days Qty: 14 0RF
doxycycline hyclate 100 mg Capsule
100 mg PO Q12 Qty: 3 0RF
prednisone 10 mg Tablet
See Rx Instructions .ROUTE .COMPLEX Qty: 30 0RF
Rx Instructions:
Take By Mouth:
40 mg daily x3 days, 30 mg daily x3 days,
20 mg daily x3 days, 10 mg daily x3 days.
Continued
amlodipine 5 MG tablet
5 mg PO Daily
aspirin 81 MG tablet,delayed release (DR/EC)
81 mg PO DAILY
levothyroxine 112 MCG tablet
112 mcg PO DAILY
torsemide 20 mg Tablet
10 mg PO DAILY
acetaminophen [Tylenol Extra Strength] 500 mg Tablet
1,000 mg PO DAILYPRN PRN (Reason: mild pain)
escitalopram oxalate 20 mg Tablet
20 mg PO DAILY
Trelegy Ellipta 200-62.5-25 mcg Blister With Device
1 inh INHALATION R DAILY
Patient Comments:
04/15/2024, pt. has not taken this med. recently because she has not been able to access it at home (not able to ambulate) and because of how expensive it is; prescribed 1 puff daily.
Discharge Orders:
Discharge Patient (As Directed); Ordered 04/20/24
Ordered By: Ubaldo Suero
Discharge Date and Time
Print Language: ARMENIAN
--- NOTE | 2024-04-20 12:36 | W.PN.UPDATE ---
Update Note
Progress Note Update
patient seen chart reviewed. the patient is feeling 'better ' today. less depressed and more hopeful about the future. she is agreeable to snf. ecg is normal . my concern at this point is serum sodium which is decreasing. it was normal at admit
(138) but she had not taken lexapro for about a week so it would likely have normalized and now it is on a decreasing pattern. need to watch closely if it goes down much further may need to rethink lexapro. will recheck in the am (hyponatremia
with ssri's is NOT dose dependent generally) will follow
[2024-04-20 15:22] VITALS: BP 125/71
== END 2024-04-20 17:55 | DRG 191 ==
LOC: 4 EAST ACU 20:10
PROVIDERS: Clinical Nurse Specialist Family Health; Physician Assistant; ADMITTING PHYSICIAN Hospitalist; ATTENDING PHYSICIAN Hospitalist; CONSULT PHYSICIAN Psychiatry & Neurology Psychiatry; EMERGENCY PHYSICIAN Student in an Organized Health Care Education/Training Program; FAMILY PHYSICIAN Family Medicine
DX: J44.1 Chronic obstructive pulmonary disease with (acute) exacerbation (principal); E87.1 Hypo-osmolality and hyponatremia; Z66 Do not resuscitate; I12.9 Hypertensive chronic kidney disease with stage 1 through stage 4 chronic kidney disease, or unspecified chronic kidney disease; N18.31 Chronic kidney disease, stage 3a; F32.9 Major depressive disorder, single episode, unspecified; F41.9 Anxiety disorder, unspecified; K70.30 Alcoholic cirrhosis of liver without ascites; F10.10 Alcohol abuse, uncomplicated; E03.9 Hypothyroidism, unspecified; E66.09 Other obesity due to excess calories; M81.0 Age-related osteoporosis without current pathological fracture; E78.00 Pure hypercholesterolemia, unspecified; I71.43 Infrarenal abdominal aortic aneurysm, without rupture; R09.02 Hypoxemia; R06.89 Other abnormalities of breathing; H40.20X0 Unspecified primary angle-closure glaucoma, stage unspecified; Z68.31 Body mass index [BMI] 31.0-31.9, adult; Z79.82 Long term (current) use of aspirin; Z79.899 Other long term (current) drug therapy; Z87.891 Personal history of nicotine dependence; Z91.148 Patient's other noncompliance with medication regimen for other reason
CPT/HCPCS: 71046; 80048; 80053; 80061; 81003; 82010; 82977; 83735; 84100; 85025; 85610; 85652; 85730; 87502; 87811; 93005; 94640; 97116; 97162; 97166; 97530; 97535; 99285

== ENCOUNTER → 2024-04-25 11:35 | Outpatient (REF) | payer MEDICARE, BC, SELFPAY ==
[2024-04-25 12:29] LABS: % Basophils 0.2 % (0-2); % Eosinophils 1.7 % (0-6); % Immature Granulocytes 2.8 % (0-0.5); % Lymphocytes 13.8 % (20.5-51.1); % Monocytes 8.9 % (1.7-9.3); % Neutrophils 72.6 % (42.2-75.2); Absolute Eosinophils 0.1 10^3/uL (0-0.7); Absolute Immature Granulocytes 0.1 10^3/uL (0-0.05); Absolute Lymphocytes 0.7 10^3/uL (1.2-3.4); Absolute Monocytes 0.4 10^3/uL (0.1-0.6); Absolute Neutrophils 3.4 10^3/uL (1.4-6.5); Hematocrit 41.4 % (37.0-47.0); Hemoglobin 13.8 g/dL (12.0-16.0); Mean Corp Hgb Conc. 33.3 g/dL (33.0-37.0); Mean Corpuscular Hgb 30.5 pg (27.0-31.0); Mean Corpuscular Volume 91.4 fL (81.0-99.0); Mean Platelet Volume 11.4 fL (7.4-10.4); Nucleated Red Blood Cells % 0 %; Platelet Count 206 10^3/uL (130-400); Red Blood Cell Count 4.53 10^6/uL (4.20-5.40); Red Cell Dist. Width 14.3 % (11.5-14.5); White Blood Cell Count 4.7 10^3/uL (4.8-10.8)
[2024-04-25 13:23] LABS: ALT (SGPT) 62 U/L (0-35); AST (SGOT) 40 U/L (14-36); Albumin 3.1 g/dl (3.5-5.0); Alkaline Phosphatase 133 U/L (38-126); Blood Urea Nitrogen 33 mg/dl (7-17); Calcium 8.5 mg/dl (8.4-10.2); Carbon Dioxide 30 mmol/L (22-30); Chloride 95 mmol/L (98-107); Glucose 85 mg/dl (70-99); Potassium 3.4 mmol/L (3.5-5.1); Sodium 134 mmol/L (135-145); Total Bilirubin 0.5 mg/dl (0.2-1.3); Total Protein 5.7 g/dl (6.3-8.2); eGFR > 60.00
== END ==
LOC: OLABP 11:35
PROVIDERS: ATTENDING PHYSICIAN Family Medicine
DX: J44.1 Chronic obstructive pulmonary disease with (acute) exacerbation (principal); M62.81 Muscle weakness (generalized); I10 Essential (primary) hypertension; E78.5 Hyperlipidemia, unspecified; N18.31 Chronic kidney disease, stage 3a; F32.9 Major depressive disorder, single episode, unspecified
CPT/HCPCS: 36415; 80053; 85025

== ENCOUNTER 2024-05-15 16:01 | Inpatient (IN) | payer MEDICARE, BC, SELFPAY ==
[2024-05-15] VITALS (10 sets, daily range): BP systolic 104–141; BP diastolic 51–89; BMI 35.5; BMI 32.0
[2024-05-15] MEDS: DUONEB 3 ML INH ×2 (12:43→19:10)
--- NOTE | 2024-05-15 12:56 | ED.GENMED ---
History of Present Illness
General
Chief Complaint: Breathing Problem
Source: patient, records and physician (: From physician)
Exam Limitations: none
Time Seen by Provider: 05/15/24 12:31
Nursing documentation reviewed up to this point in time: agreed with
Travel History
Have you had any contact with someone who has COVID-19?: No
Do you have any symptoms of coronavirus? Fever > 100 degrees, chills, cough, shortness of breath, sore throat, loss of taste or smell, muscle aches, or headache?: No
History of Present Illness
History of Present Illness:
83-year-old female presents with shortness of breath history of COPD no longer smoking symptoms started few days ago some postnasal drip no cough but feels short of breath saw PCP referred here no chest pain, no fevers no leg edema noted to be
hypoxic here, not on home oxygen, not on chronic p.o. steroids
Past History
Past History
ED Past Medical History: COPD, HTN, Hypercholesterolemia and Other (Cirrhosis)
ED Past Surgical History: Other (Noncontributory)
Social History
Tobacco: Former smoker
Alcohol: None
Drug: None
Personal:
Living: with family
Employment: Retired
Family History
Family History: Other (Noncontributory)
Review of Systems
Review of Systems
All Other Systems: Not applicable
Constitutional: Denies fever or fatigue
EENT: Reports no symptoms
Respiratory: Reports trouble breathing; Denies cough
Cardiac: Reports no symptoms
ABD/GI: Reports no symptoms
: Reports no symptoms
Musculoskeletal: Reports no symptoms
Skin: Reports no symptoms
Neurological: Reports no symptoms
Hematologic/Lymphatic: Reports no symptoms
Psychiatric: Reports no symptoms
Phy Exam
Physical Exam
Physical Exam:
Physical Exam
General: Elderly female hypoxic
Neck: No JVD
Heart: Tachycardic
Lungs: Fair air movement with faint rhonchi
Abdomen: Nontender
Neuro: alert and oriented. no focal neurological deficits
Skin: no rash
Psychiatric: well kept. interactive and cooperative
Extremities: no edema. no calf tenderness.
Scores
Heart Failure Risk
Heart Failure Risk Score: Not Applicable
Course
Orders/Labs/Results
Orders:
Orders
05/15/24 12:32
Electrocardiogram (*1) Stat
Reason for Study: Other
Other Reason for Exam: pneumonia
Cardiac Monitoring- Treatment ONCE
EKG- Treatment ONCE
Ipratropium/Albuterol Sulfate [Duoneb] 3 ml INH R NOW STA
CR Chest Portable - 1 View Urgent
Comment:
Reason For Exam: sob copd
Reason Study Needs to be Portable: Unable to Transport
05/15/24 12:41
Complete Blood Count/With Diff Urgent
Troponin I Urgent
05/15/24 12:42
Comprehensive Metabolic Panel Urgent
05/15/24 14:08
Dexamethasone Sod Phosphate [Decadron] 10 mg IV NOW STA
Abnormal Lab Results
05/15/24 05/15/24
12:41 12:42
WBC 3.9 L 10^3/uL
(4.8-10.8)
MPV 11.5 H fL
(7.4-10.4)
Absolute Lymphs (auto) 0.5 L 10^3/uL
(1.2-3.4)
Immature Gran % 0.8 H %
(0-0.5)
Lymphocytes % 13.5 L %
(20.5-51.1)
Monocytes % 10.1 H %
(1.7-9.3)
Potassium 3.4 L mmol/L
(3.5-5.1)
05/15/24 12:41
05/15/24 12:42
Vital Signs
Initial and Last Documented VS:
Initial Vital Signs
Temp Pulse Resp BP Pulse Ox
98.3 F 80 30 141/68 92
05/15/24 12:18 05/15/24 12:18 05/15/24 12:18 05/15/24 12:18 05/15/24 12:18
Last Documented Vital Signs
Temp Pulse Resp BP Pulse Ox
98.3 F 72 17 107/59 91
05/15/24 12:18 05/15/24 13:00 05/15/24 13:00 05/15/24 13:00 05/15/24 13:11
MDM/Problems Addressed
Differential Diagnosis Includes:
COPD pneumonia heart failure pneumothorax conceivably PE
MDM/Problems Addressed:
Shortness of breath
Chronic conditions affecting care: COPD
Acute Exacerbation and/or Progression of Chronic Illness: COPD
*Radiology
Radiology exam reviewed: preliminary read by ED provider
*Pulse Oximetry
Patient hypoxic: yes
Comment: 89
*Route Delivery Supervisor Interpretation
Rate: normal
Interpretation: normal
Heart Rate: 88
Rhythm: sinus
*Critical Care Note
Total Time (30-74mins, 75-104mins- exclusive of procedures): 12
Update Note
Update Note:
2:10 PM reevaluation patient feeling a bit better saturation is 88% on room air will require admission
ED Attending Note
-
Portions of this chart may have been created with voice recognition software.� Occasional wrong word or��sound alike� substitutions may have occurred due to the inherent limitations of voice recognition software.
Discharge Plan
Departure
Patient Disposition: Admit
Date of Disposition: 05/15/24
Time of Disposition: 14:09
Admit to: Med/Surg
Presentation/result/management discussed w/ accepting MD/DO: Hospitalist
Patient with high blood pressure during this ER visit?: Yes
Condition: Fair
Covid-19: Not Applicable
Discharge Problem:
COPD (chronic obstructive pulmonary disease), Hypoxemia
Prescriptions:
No Action
amlodipine 5 MG tablet
5 mg PO Daily
aspirin 81 MG tablet,delayed release (DR/EC)
81 mg PO DAILY
levothyroxine 112 MCG tablet
112 mcg PO DAILY
torsemide 20 mg Tablet
10 mg PO DAILY
acetaminophen [Tylenol Extra Strength] 500 mg Tablet
1,000 mg PO DAILYPRN PRN (Reason: mild pain)
escitalopram oxalate 20 mg Tablet
20 mg PO DAILY
Trelegy Ellipta 200-62.5-25 mcg Blister With Device
1 inh INHALATION R DAILY
cyanocobalamin (vitamin B-12) 500 mcg Tablet,Chewable
500 mcg PO DAILY
polyethylene glycol 3350 [HealthyLax] 17 gram powder in packet
17 g PO DAILYPRN PRN (Reason: constipation)
Referrals:
Quincy Phelps Jr., DO [Family Provider] -
Interventions
Interventions:
*Risk Screen - Suicide Last Done: 05/15/24 12:18
*General Assessment Last Done: 05/15/24 12:18
*Neglect/Abuse Screening Last Done: 05/15/24 12:18
*ED COVID-19 Vaccine History Last Done: 05/15/24 12:18
ED- Cardiac Assessment Last Done: 05/15/24 13:23
ED- Pulmonary Assessment Last Done: 05/15/24 13:11
Discharge Date and Time
Print Language: [id number]
[2024-05-15 13:01] LABS: % Basophils 0.5 % (0-2); % Eosinophils 2.9 % (0-6); % Immature Granulocytes 0.8 % (0-0.5); % Lymphocytes 13.5 % (20.5-51.1); % Monocytes 10.1 % (1.7-9.3); % Neutrophils 72.2 % (42.2-75.2); Absolute Eosinophils 0.1 10^3/uL (0-0.7); Absolute Lymphocytes 0.5 10^3/uL (1.2-3.4); Absolute Monocytes 0.4 10^3/uL (0.1-0.6); Absolute Neutrophils 2.8 10^3/uL (1.4-6.5); Hematocrit 38.2 % (37.0-47.0); Hemoglobin 12.9 g/dL (12.0-16.0); Mean Corp Hgb Conc. 33.8 g/dL (33.0-37.0); Mean Corpuscular Volume 88.8 fL (81.0-99.0); Mean Platelet Volume 11.5 fL (7.4-10.4); Nucleated Red Blood Cells % 0 %; Platelet Count 228 10^3/uL (130-400); Red Cell Dist. Width 14.5 % (11.5-14.5); White Blood Cell Count 3.9 10^3/uL (4.8-10.8)
[2024-05-15 13:10] LABS: ALT (SGPT) 25 U/L (0-35); AST (SGOT) 32 U/L (14-36); Albumin 3.7 g/dl (3.5-5.0); Alkaline Phosphatase 113 U/L (38-126); Blood Urea Nitrogen 12 mg/dl (7-17); Calcium 9.3 mg/dl (8.4-10.2); Carbon Dioxide 24 mmol/L (22-30); Chloride 100 mmol/L (98-107); Glucose 86 mg/dl (70-99); Potassium 3.4 mmol/L (3.5-5.1); Sodium 135 mmol/L (135-145); Total Bilirubin 0.8 mg/dl (0.2-1.3); Total Protein 6.6 g/dl (6.3-8.2); eGFR > 60.00
[2024-05-15 13:53] LABS: Troponin I < 0.012 ng/ml
[2024-05-15] MEDS: DECADRON 10 MG IV (14:33)
--- NOTE | 2024-05-15 15:28 | HPS.HSE ---
Family Physician
-
Family Physician: Quincy Phelps Jr.
Chief Complaint
-
SOB
History of Present Illness
83-year-old female with extensive past medical history is presenting from home with complaints of shortness of breath for the past 5 days. Patient initially stated she noticed shortness of breath on last . Call her primary machine repairman
and was not able to see him till May. Patient over the weekend set at home. Today she went to see her primary care doctor who recommended patient to be coming to the hospital. Patient states of shortness of breath with mild activity. Denies any
left-sided substernal chest pain. Does states of left-sided intermittent cramps. Denies lower extremity swelling, PND and orthopnea. States she is compliant with her medication including trelegy. States at home she is mobile and ambulatory.
However shortness of breath acutely started last week. States of postnasal drip leading to cough. No sick contact and lives alone. No productive cough.
Medical History
Past Medical History
Past Medical History: Reports Other
Additional Past Medical History:
HTN Primary
HLD
COPD
Ex-smoker quit age 62 prior 40-year 1 pack a day
Cirrhosis of liver
Alcohol use drinks 1 martini vodka and remove at night has not had any in 5 days
Depression
Moderate to severe hepatic cirrhosis
CKD 3A
Moderate chronic bilateral renal disease
Fusiform infrarenal abdominal aortic aneurysm 4.2 cm
Parathyroid adenoma with parathyroidectomy
Hypothyroidism
Osteoporosis
history of fractures
narrow angle glaucoma
Obesity
Past Surgical History: Reports Other
Additional Past Surgical History:
Umbilical hernia repair
Left foot reconstruction December 2010
Bilateral foot surgeries x 4 [id number]
Tonsillectomy adenoidectomy as child
Parathyroidectomy
Social History
Tobacco: Former Smoker (41 pack a day quit age 62)
Alcohol: Daily (1 martini with vodka and [facility] last drink was 5 days ago 04/10/2024)
Drug: None
Personal: (2 years)
Living: Alone
Employment: Retired
Family History
Family History: Other (Father abdominal aortic aneurysm, ascending aortic aneurysm , mother [place])
Allergies / Home Medications
Allergies reflects when Allergies were last updated in [facility].
Home Medications with original date entered in [facility]
Allergy/Medication List:
Allergies
Allergy/AdvReac Type Severity Reaction Status Date / Time
Sulfa (Sulfonamide Allergy 'almost Verified 04/15/24 16:51
Antibiotics) '
Home Medications
amlodipine 5 mg tablet 5 mg PO Daily Blood Pressure 02/01/10
aspirin 81 mg tablet,delayed release 81 mg PO DAILY Blood Clot Prevention/Tx 08/07/11
levothyroxine 112 mcg tablet 112 mcg PO DAILY Thyroid 08/07/11
acetaminophen 500 mg tablet (Tylenol Extra Strength) 1,000 mg PO DAILYPRN PRN mild pain 04/15/24
escitalopram oxalate 20 mg tablet 20 mg PO DAILY Mental Health/Anxiety 04/15/24
fluticasone fur. 200 mcg-umeclid 62.5 mcg-vilant 25 mcg inhalat.powder (Trelegy Ellipta) 1 inh inhalation R DAILY Lung/Breathing Issues 04/15/24
torsemide 20 mg tablet 10 mg PO DAILY Fluid Retention/Swelling 04/15/24
cyanocobalamin (vitamin B-12) 500 mcg chewable tablet 500 mcg PO DAILY 05/15/24
polyethylene glycol 3350 17 gram oral powder packet (HealthyLax) 17 g PO DAILYPRN PRN constipation 05/15/24
Review of Systems
-
A 12 point ROS was completed and negative except as noted: Yes
Physical Exam
Vital Signs
Vital Signs
Temp Pulse Resp BP Pulse Ox
98.3 F 71 19 122/88 96
05/15/24 12:18 05/15/24 14:45 05/15/24 14:45 05/15/24 14:00 05/15/24 14:15
Physical Exam
General: Well Developed, Well Nourished and No Apparent Distress
HEENT: NormoCephalic, Moist mucous membranes and Atraumatic
Respiratory: Other (decerase aeration)
Cardiac: S1/S2 and Regular Rhythm; No Murmur or Rub
GI: Soft, Non Tender, Non Distended and Normal Bowel Sounds; No Organomegaly
Rectal: Deferred by Provider
Musculoskeletal: No Clubbing, No Cyanosis and No Edema
Skin: No Rash
Neuro: Awake and Nonfocal/grossly intact
Psych: Calm
Laboratory Results
-
05/15/24 12:41
05/15/24 12:42
Laboratory Results
Total Bilirubin 0.8 mg/dl (0.2-1.3) 05/15/24 12:42
AST 32 U/L (14-36) 05/15/24 12:42
ALT 25 U/L (0-35) 05/15/24 12:42
Alkaline Phosphatase 113 U/L (38-126) 05/15/24 12:42
Troponin I < 0.012 ng/ml 05/15/24 12:41
Impression/Plan
-
Acute hypoxic respiratory insufficiency
Shortness of breath likely secondary due to COPD exacerbation versus rule out cardiac etiology
-h/o tobacco abuse disorder
-Did not qualify for home O2 during previous hospitalization.
-Due to acuity of dyspnea will check CT chest
-1st set troponin negative. Continue to trend x 2.
-Check proBNP.
-Status post 10 milligram of IV Decadron. Start patient on 6 every 12 in the morning
-Continue with bronchodilators
-Check a sputum sample
-Pulmonary eval
Depression
-States has been compliant with Lexapro.
Hypokalemia
-replete/monitor
Chronic alcoholic cirrhosis: EtOH cessation.
Essential HTN: cont Norvasc
h/o Fusiform infrarenal abdominal aortic aneurysm 4.2 cm per abdomen ultrasound 01/04/2023
Hyperlipidemia
Hypothyroidism: cont Levoxyl
h/o Parathyroid adenoma with parathyroidectomy
Obesity due to excess calories: Encourage weight loss. Affects all aspects of care.
Osteoporosis with h/o fxs
Mild hyponatremia monitor
DVT ppx-lovenox
DNR/DNI
I spent a total of 78 minutes with the patient or on the floor. More than 50% of this time involved counseling and coordination of care.
[2024-05-15] MEDS: KCL 40 MEQ PO (16:04)
[2024-05-15] MEDS: DUONEB INH (17:13)
[2024-05-15] MEDS: LOVENOX 40 MG SC (17:46)
[2024-05-15 19:20] LABS: Troponin I < 0.012 ng/ml
[2024-05-16 02:00] LABS: Troponin I < 0.012 ng/ml
[2024-05-16 03:02] VITALS: BP 120/64
[2024-05-16] MEDS: SYNTHROID 112 MCG PO (05:25)
[2024-05-16 05:31] VITALS: BMI 32.0
[2024-05-16] MEDS: SYMBICORT 160/4.5 MCG INHALER 2 PUFF INH ×2 (07:21→19:32)
[2024-05-16] MEDS: DUONEB 3 ML INH ×4 (07:21→19:32)
[2024-05-16 07:25] VITALS: BP 119/56
[2024-05-16] MEDS: DECADRON 6 MG IV ×2 (08:09→19:39)
[2024-05-16] MEDS: ASPIR LOW (ENTERIC COATED) 81 MG PO (08:10)
[2024-05-16] MEDS: VITAMIN B-12 500 MCG PO (08:10)
[2024-05-16] MEDS: NORVASC 5 MG PO (08:10)
[2024-05-16] MEDS: DEMADEX 10 MG PO (08:14)
[2024-05-16] MEDS: LEXAPRO 20 MG PO (08:14)
[2024-05-16 09:16] LABS: Blood Urea Nitrogen 14 mg/dl (7-17); Calcium 9.4 mg/dl (8.4-10.2); Carbon Dioxide 23 mmol/L (22-30); Chloride 101 mmol/L (98-107); Estimated Creatinine Clearance 69 ml/min; Glucose 117 mg/dl (70-99); Potassium 4.3 mmol/L (3.5-5.1); Sodium 135 mmol/L (135-145); eGFR > 60.00
--- NOTE | 2024-05-16 09:40 | CON.PUL ---
Consultation
Consultation Request
Date/Time Consultation Requested: 05/15/20241705
Date/Time Consultation Performed: 05/16/2024927
Requesting Provider: Dr. Suero
Performing Provider: Dr. Trejo
Reason for Consultation: COPD exacerbation
Medical History
-
Chief Complaint: SOB
History of Present Illness:
83-year-old female with a past medical history of moderate COPD, breast MALToma, immunoglobulin deficiency (low IgM, normal IgG), who presents with SOB x 5 days. Patient recommended come to the hospital via her PCP. No chest pain reported. She
uses Trelegy at home and is compliant. In the ER she was saturating 92% on room air, afebrile to 98.3 �F, pulse rate 80, breathing at 30 breaths/min and BP 141/68. Labs showed leukopenia to 3.9, troponin negative at <0.012, and flu A/B swab was
negative. CXR showed no acute disease of the chest, and a CT of the chest was performed showing no acute PE with moderate emphysematous changes and an 8 cm bandlike parenchymal opacity seen in the posterior RLL which is due to either pneumonia
versus atelectasis. She was given Decadron and DuoNebs in the ER, admitted to the hospitalist service and pulmonary service consulted for additional management/recommendations.
When I saw the patient she was sitting in bed, in no acute distress, on 1 L/min nasal cannula breathing comfortably. She wanted me to speak to her daughter, Hemalatha, and I spoke to her over the phone and answered all of her questions. The patient
says that prior to her last hospitalization, she fell into a deep depression and all she did was sleep and go to the bathroom and was not taking any of her medications or inhalers. Her has a little over 2 years ago and she was
going through his close and she also remembered the passing of her mother as well. This will put her over the edge and led to her depression. She is still working on herself but now understands that she needs to take her medications and
understands what led her to her last hospitalization. She was still taking her prednisone after she left the hospital on 04/20/2024, and finished her prednisone about 4 days after getting out of rehab at [facility]. It was shortly after that where
her breathing became worse and she feels that maybe she was taken off the steroids too soon. She currently denies chest pain, headache, abdominal pain, fevers or chills.
Of note, patient follows with our office with Dr. Martinez -last office visit on 10/07/2023. She follows for COPD, history of immunoglobulin deficiency, and history of hypoxia previously on LTOT. At that office visit, she was told to continue with
Trelegy which she was compliant with. She had previously required oxygen based on a prior 6-minute walk test from 2018 however repeat 6 MWT from showed her SpO2 kanchan was 91% so O2 was removed. She has a history of a traumatic pneumothorax from
right-sided rib fractures back in 2008. She does follow with hematology/oncology given her history of MALToma of the breast and low IgM with normal IgG. Her last PFT was from September 2022 showing moderate COPD with a positive/non-significant
bronchodilator response, with borderline hyperinflation, and mild air trapping (RV: 129%). And a moderate gas exchange capacity defect (DLco: 44%). She was recently hospitalized here from 04/15ue to a COPD exacerbation and was advised
to follow-up with us in the office, but she declined as she was in rehab and did not want to be seen until after that was completed.
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
and trace TR, COPD, former tobacco use disorder (quit 1998), allergic rhinitis, obesity, osteopenia with history of osteoporosis treated with Boniva, depression, BPPV (2011), history of RML pneumonia (2015), right rib fractures and lung contusion
s/p fall c/b traumatic pneumothorax, personal history of COVID-19 (09/2022)
PSHx: Left ankle ORIF, left knee meniscus repair + TV repair (2018), parathyroidectomy, umbilical hernia repair, tonsillectomy
Past Medical History
Past Medical History: Other (Above as per HPI)
Past Surgical History: Other (Above as per HPI)
Social History
Tobacco: Former Smoker (Quit 1998, 26-zpoh-voro history)
Alcohol: Chronic Alcoholic
Drug: None
Environmental Exposures: No history of his past exposure
Family History
Family History: CAD (Mother with history of [place]), Hypertension (Mother) and Other (Father: Thoracic + abdominal aortic aneurysm)
Allergies / Home Medications
Allergies
Allergy/AdvReac Type Severity Reaction Status Date / Time
Sulfa (Sulfonamide Allergy 'almost Verified 04/15/24 16:51
Antibiotics) '
Home Medications
�Medication �Instructions �Recorded �Confirmed �Last Taken �Type
amlodipine 5 mg tablet 5 mg PO Daily Blood Pressure 02/01/10 05/15/24 05/15/24 History
aspirin 81 mg tablet,delayed 81 mg PO DAILY Blood Clot 08/07/11 05/15/24 05/15/24 History
release Prevention/Tx
levothyroxine 112 mcg tablet 112 mcg PO DAILY Thyroid 08/07/11 05/15/24 05/15/24 History
acetaminophen 500 mg tablet 1,000 mg PO DAILYPRN PRN mild pain 04/15/24 05/15/24 05/14/24 History
(Tylenol Extra Strength)
escitalopram oxalate 20 mg tablet 20 mg PO DAILY Mental 04/15/24 05/15/24 05/15/24 History
Health/Anxiety
fluticasone fur. 200 mcg-umeclid 1 inh inhalation R DAILY 04/15/24 05/15/24 05/15/24 History
62.5 mcg-vilant 25 mcg Lung/Breathing Issues
inhalat.powder (Trelegy Ellipta)
torsemide 20 mg tablet 10 mg PO DAILY Fluid 04/15/24 05/15/24 05/15/24 History
Retention/Swelling
cyanocobalamin (vitamin B-12) 500 500 mcg PO DAILY Supplement 05/15/24 05/15/24 05/14/24 History
mcg chewable tablet
polyethylene glycol 3350 17 gram 17 g PO DAILYPRN PRN constipation 05/15/24 05/15/24 05/14/24 History
oral powder packet (HealthyLax)
Review of Systems
-
History Source: Patient
All other systems: Negative unless noted
Vitals / Labs / Diagnostic Testing
Vital Signs
Temp Pulse Resp BP Pulse Ox
97.5 F 67 20 119/56 92
05/16/24 07:25 05/16/24 07:25 05/16/24 07:25 05/16/24 07:25 05/16/24 07:25
Lab Data
05/15/24 12:41
05/16/24 07:52
Diagnostic Testing:
Physical Exam
-
HEENT: Normocephalic and Anicteric
Cardiovascular: S1/S2 and Peripheral Edema (negative)
Respiratory: Wheeze (negative), Rales (R-base ), Rhonchi (negative) and Accessory Resp Muscle Use (negative)
GI: Soft, Non Distended, Non Tender and Normal Bowel Sounds
Neurology: AO x 3 and Tremors (negative)
Skin: Warm and Dry
General: Comfortable and Chills (negative)
Assessment
-
Assessment: 83-year-old female with a past medical history of moderate COPD, breast MALToma, immunoglobulin deficiency (low IgM, normal IgG), who presents with SOB x 5 days. Patient recommended come to the hospital via her PCP. No chest pain
reported. She uses Trelegy at home and is compliant. In the ER she was saturating 92% on room air, afebrile to 98.3 �F, pulse rate 80, breathing at 30 breaths/min and BP 141/68. Labs showed leukopenia to 3.9, troponin negative at <0.012, and flu
A/B swab was negative. CXR showed no acute disease of the chest, and a CT of the chest was performed showing no acute PE with moderate emphysematous changes and an 8 cm bandlike parenchymal opacity seen in the posterior RLL which is due to either
pneumonia versus atelectasis. She was given Decadron and DuoNebs in the ER, admitted to the hospitalist service and pulmonary service consulted for additional management/recommendations.
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
mild�moderate MR, and trace TR, COPD, former tobacco use disorder (quit 1998), allergic rhinitis, obesity, osteopenia with history of osteoporosis treated with Boniva, depression, BPPV (2011), history of RML pneumonia (2015), right rib fractures and
lung contusion s/p fall c/b traumatic pneumothorax, personal history of COVID-19 (09/2022)
Impression:
#Acute COPD exacerbation
#Posterior right lower lobe bandlike consolidative opacity � likely due to rounded atelectasis vs scar vs pneumonia - this is new compared to prior RLL lung base seen on CT A/P from 12/2019
#Moderate COPD due to paraseptal/centrilobular emphysema
#Former tobacco use disorder (quit 1998)
#History of osteoporosis s/p Boniva now with osteopenia
#Hepatic cirrhosis c/b poHTN
#Lymphopenia with a history of MGUS
#History of valvular heart disease
Plan:
- Continue treatment with suspected COPD exacerbation with Decadron � currently on 6 mg IV q12hr - wean as tolerated
- Now that she has been in the hospital for second time in 1 month for COPD exacerbation, would consider starting her on Zithromax TIW for refractory COPD (QTc: 492ms on EKG from 05/15/2024) - this can be discussed in the office
- Unclear if this posterior RLL consolidative opacity with bandlike linear scarring attached to it is a pneumonia +/- scar or just rounded atelectasis - considering the radiographic findings with a subpleural mass with a comet tail and associated
pleural thickening, as well as the patient not having any clinical signs of bacterial pneumonia, I am highly confident this is rounded atelectasis and no biopsy is needed at this time, and I will order repeat CT chest in about 6-8 weeks to assure
this is stable. Because of this, hold off on Abx unless pt spikes fever or deteriorates
- Continue with maintenance inhaler with Symbicort 160mcg + DuoNebs QID
- prn nebulized bronchodilators
- As she gets closer to discharge, stop standing DuoNebs then changed to Spiriva respimat 2.5mcg
- Maintain SpO2 >88-94% with supplemental O2 as needed
- Incentive spirometer encouraged
- mucolytics prn + flutter valve
- Replete electrolytes with K>4, Mg>2
- Maintain euglycemia with goal BG >100 and <180
- DVT ppx
Pulmonary service will continue to follow along. Patient will follow-up with our office following discharge - Last office visit on 10/07/[address] Martinez.
Total time spent today was 55 minutes for this encounter. Time includes reviewing laboratory test/imaging results, reviewing pertinent medical records, obtaining and reviewing medical history, performing an appropriate exam, ordering medications,
tests and procedures. Time also includes documentation of this encounter, coordinating patient care and communicating with other healthcare professionals. Total time does not include separately billed tests performed on this date of service.
Data:
CTA Chest 05-15-2024:
1). There is no pulmonary embolism
2).There is a 8 cm bandlike area of parenchymal airspace disease extending from the right infrahilar region to the posterior pleural surface, new when compared with the previous examination which may be pneumonia or atelectasis or scarring which has
developed in the interval since the prior study
3). Moderate centrilobular emphysema
--- NOTE | 2024-05-16 10:39 | W.PN.HOSP.TC ---
Today's Communication/Plan
-
IV steroids
Wean oxygen as tolerated
Sputum sample
Pulmonary evaluation
Assessment / Plan
Assessment / Plan
Acute hypoxic respiratory insufficiency
Shortness of breath likely secondary due to COPD exacerbation
-h/o tobacco abuse disorder
-Did not qualify for home O2 during previous hospitalization.
-CT chest was negative for pulmonary embolism. Moderate central lobar emphysema. There is a tentative bandlike area of point, space disease extending from the right infrahilar region to posterior pleural surface, new when compared to previous
examination which may be pneumonia or atelectasis or scarring which is developed in the interval since the prior study compared to 12/2021.
-Status post 10 milligram of IV Decadron. Start patient on 6 every 12 in the morning
-Continue with bronchodilators
-Awaiting sputum sample
-Troponin was checked was negative x 3. No PND orthopnea. No chest pain. WBC within normal limits. Afebrile.
-Pulmonary eval
Depression
-States has been compliant with Lexapro.
Hypokalemia
-replete/monitor
Chronic alcoholic cirrhosis: EtOH cessation.
Essential HTN: cont Norvasc
h/o Fusiform infrarenal abdominal aortic aneurysm 4.2 cm per abdomen ultrasound 01/04/2023
Hyperlipidemia
Hypothyroidism: cont Levoxyl
h/o Parathyroid adenoma with parathyroidectomy
Obesity due to excess calories: Encourage weight loss. Affects all aspects of care.
Osteoporosis with h/o fxs
Mild hyponatremia monitor
DVT ppx-lovenox
DNR/DNI
Anticipated Discharge: > 48 hours
Subjective/Interval History
-
Date of Service: May 16, 2024
Remains with shortness of breath
Objective Data
-
Labs:
Laboratory Results
05/16/24
07:52
Sodium 135
Potassium 4.3 D
Chloride 101
Carbon Dioxide 23
BUN 14
Creatinine 0.6
Glucose 117 H
Calcium 9.4
Vital Signs:
Vital Signs
Temp Pulse Resp BP Pulse Ox
97.5 F 67 20 119/56 92
05/16/24 07:25 05/16/24 07:25 05/16/24 07:25 05/16/24 07:25 05/16/24 07:25
I&O
05/15/24 05/16/24 05/17/24
06:59 06:59 06:59
Intake Total 420 / 420
Balance 420 / 420
Physical Exam
-
General: Well Developed and No Apparent Distress
HEENT: Normocephalic, Atraumatic, Moist Mucous Membranes and Oxygen
Respiratory: Other (Decreased aeration); Negative Wheezes or Rales
Cardiac: Regular Rhythm and S1/S2; Negative Murmur, Rub or Gallop
GI: Soft, Nontender, Nondistended and Normal Bowel Sounds; Negative Organomegaly
Rectal: Deferred by Provider
Musculoskeletal: No Clubbing, No Cyanosis and No Edema
Skin: Negative Rash
Neuro: Awake and Nonfocal/Grossly Intact
Psych: Calm
Data Reviewed
-
Total Time Spent with Patient (in minutes): 55
[2024-05-16 11:15] VITALS: BP 112/45
--- NOTE | 2024-05-16 12:27 | CM ---
CM met with pt bedside
Pt resides alone in a [place] with 1STE
Patient independent, and drives
Pt has a RW and SPC for use as needed
No oxygen at home
Pt with no current VN, recent admission to [facility].
Advanced directive packet provided per patient request.
PCP- Quincy Phelps
Delon- Vandana
Plan:home no needs, daughter will transport.
[2024-05-16] MEDS: MIRALAX 17 GRAMS PO (13:24)
[2024-05-16 15:20] VITALS: BP 120/49
[2024-05-16] MEDS: LOVENOX 40 MG SC (17:20)
[2024-05-16 19:22] VITALS: BP 123/91
[2024-05-16 23:19] VITALS: BP 118/83
[2024-05-16] MEDS: TYLENOL 1000 MG PO (23:23)
[2024-05-17 03:08] VITALS: BP 120/57
--- NOTE | 2024-05-17 03:49 | DOWNTIME ---
There was a [employer] Client Stock Holder Downtime on 05/17/2024 from 0100 to 05/17/2024 at 0337. Downtime documentation of patient's care, including medication administrations, has been reconciled in the electronic record per guidelines. Refer to the
patient's paper chart under the miscellaneous tab to see printed paper medication records and downtime forms.
[2024-05-17] MEDS: SYNTHROID 112 MCG PO (05:54)
[2024-05-17 06:00] VITALS: BMI 32.2
[2024-05-17] MEDS: SYMBICORT 160/4.5 MCG INHALER 2 PUFF INH ×2 (07:04→19:22)
[2024-05-17] MEDS: DUONEB 3 ML INH ×4 (07:05→19:22)
[2024-05-17 08:00] VITALS: BP 138/61
[2024-05-17] MEDS: DECADRON 6 MG IV (08:13)
[2024-05-17] MEDS: NORVASC 5 MG PO (08:16)
[2024-05-17] MEDS: LEXAPRO 20 MG PO (08:16)
[2024-05-17] MEDS: DEMADEX 10 MG PO (08:17)
[2024-05-17] MEDS: VITAMIN B-12 500 MCG PO (08:17)
[2024-05-17] MEDS: ASPIR LOW (ENTERIC COATED) 81 MG PO (08:18)
--- NOTE | 2024-05-17 08:53 | W.PN.PUL3 ---
Today's Communication / Plan
-
Continue with systemic steroids � wean down Decadron today to 4 mg IV q12hr from 6mg IV q12hr
DuoNebs QID + Symbicort 160mcg
Transition back to Spiriva 2.5mcg/act tomorrow, and DC home on Trelegy
Up OOB as tolerated
Encourage IS use, 10x per hour for at least 4 hours a day
Suspect she will be ready for discharge in next 1-2 days with prolonged prednisone taper with outpatient follow up with our office
Assessment
-
Assessment: 83-year-old female with a past medical history of moderate COPD, breast MALToma, immunoglobulin deficiency (low IgM, normal IgG), who presents with SOB x 5 days. Patient recommended come to the hospital via her PCP. No chest pain
reported. She uses Trelegy at home and is compliant. In the ER she was saturating 92% on room air, afebrile to 98.3 �F, pulse rate 80, breathing at 30 breaths/min and BP 141/68. Labs showed leukopenia to 3.9, troponin negative at <0.012, and flu
A/B swab was negative. CXR showed no acute disease of the chest, and a CT of the chest was performed showing no acute PE with moderate emphysematous changes and an 8 cm bandlike parenchymal opacity seen in the posterior RLL which is due to either
pneumonia versus atelectasis. She was given Decadron and DuoNebs in the ER, admitted to the hospitalist service and pulmonary service consulted for additional management/recommendations.
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
mild�moderate MR, and trace TR, COPD, former tobacco use disorder (quit 1998), allergic rhinitis, obesity, osteopenia with history of osteoporosis treated with Boniva, depression, BPPV (2011), history of RML pneumonia (2015), right rib fractures and
lung contusion s/p fall c/b traumatic pneumothorax, personal history of COVID-19 (09/2022)
Impression:
#Acute COPD exacerbation
#Posterior right lower lobe bandlike consolidative opacity � likely due to rounded atelectasis vs scar vs pneumonia - this is new compared to prior RLL lung base seen on CT A/P from 12/2019
#Moderate COPD due to paraseptal/centrilobular emphysema
#Former tobacco use disorder (quit 1998)
#History of osteoporosis s/p Boniva now with osteopenia
#Hepatic cirrhosis c/b poHTN
#Lymphopenia with a history of MGUS
#History of valvular heart disease
Plan:
- Continue treatment with suspected COPD exacerbation with Decadron � currently on 6 mg IV q12hr - wean as tolerated --> tonight will wean down to 4mg IV q12hr
- Now that she has been in the hospital for second time in 1 month for COPD exacerbation, would consider starting her on Zithromax TIW for refractory COPD (QTc: 492ms on EKG from 05/15/2024) - this can be discussed in the office
- Unclear if this posterior RLL consolidative opacity with bandlike linear scarring attached to it is a pneumonia +/- scar or just rounded atelectasis - considering the radiographic findings with a subpleural mass with a comet tail and associated
pleural thickening, as well as the patient not having any clinical signs of bacterial pneumonia, I am highly confident this is rounded atelectasis and no biopsy is needed at this time, and I will order repeat CT chest in about 6-8 weeks to assure
this is stable. Because of this, hold off on Abx unless pt spikes fever or deteriorates
- Continue with maintenance inhaler with Symbicort 160mcg + DuoNebs QID
- prn nebulized bronchodilators
- As she gets closer to discharge, stop standing DuoNebs then changed to Spiriva respimat 2.5mcg
- Maintain SpO2 >88-94% with supplemental O2 as needed
- Check O2 home assessment prior to discharge
- Incentive spirometer encouraged
- mucolytics prn + flutter valve
- Replete electrolytes with K>4, Mg>2
- Maintain euglycemia with goal BG >100 and <180
- DVT ppx
Pulmonary service will continue to follow along. Patient will follow-up with our office following discharge - Last office visit on 10/07/[address] Martinez.
Total time spent today was 35 minutes for this encounter. Time includes reviewing laboratory test/imaging results, reviewing pertinent medical records, obtaining and reviewing medical history, performing an appropriate exam, ordering medications,
tests and procedures. Time also includes documentation of this encounter, coordinating patient care and communicating with other healthcare professionals. Total time does not include separately billed tests performed on this date of service.
Data:
CTA Chest 05-15-2024:
1). There is no pulmonary embolism
2).There is a 8 cm bandlike area of parenchymal airspace disease extending from the right infrahilar region to the posterior pleural surface, new when compared with the previous examination which may be pneumonia or atelectasis or scarring which has
developed in the interval since the prior study
3). Moderate centrilobular emphysema
Subjective Data
-
Date of Service:
Date of Service: May 17, 2024
Chief Complaint: Pulmonary Follow Up
Subjective:
Patient seen at bedside with patient's daughter, Hemalatha, and I answered both the patient and the daughter's questions. Patient currently on room air breathing comfortably. She walked around the unit today on room air and desaturated to 93% and
the patient says she felt okay doing that. Overall her SOB is improving. She currently denies chest pain, headache, fevers or chills.
Review of Systems
General: Other (Negative unless mentioned above)
Objective Data
Data Reviewed
Vital Signs / I&O / Oxygen:
Vital Signs
Temp Pulse Resp BP Pulse Ox
97.7 F 61 18 138/61 97
05/17/24 08:00 05/17/24 11:16 05/17/24 11:16 05/17/24 08:00 05/17/24 11:16
Intake and Output
05/16/24 05/17/24 05/18/24
06:59 06:59 06:59
Intake Total 420 / 420 480 / 480
Balance 420 / 420 480 / 480
SaO2 97
Nasal Cannula flow liters per 1
minute
Physical Exam
General: Respiratory Distress (Negative) and Comfortable
HEENT: Normocephalic and Anicteric
Cardiovascular: S1-S2 and Peripheral Edema (Negative)
Respiratory: Clear, Wheeze (Negative), Crackles (Negative), Rhonchi (Negative) and Other (Reduced breath sounds bilaterally)
GI: Soft, Distended (Abdominal obesity), Non Tender and Normal Bowel Sounds
Neurology: Awake, Alert and Tremors (Negative)
Skin: Warm, Dry and Jaundice (Negative)
Labs/Micro/Reports
Lab Data
05/15/24 12:41
05/17/24 07:32
[2024-05-17 09:41] LABS: Blood Urea Nitrogen 21 mg/dl (7-17); Calcium 9.7 mg/dl (8.4-10.2); Carbon Dioxide 26 mmol/L (22-30); Chloride 101 mmol/L (98-107); Estimated Creatinine Clearance 52 ml/min; Glucose 121 mg/dl (70-99); Potassium 4.4 mmol/L (3.5-5.1); Sodium 138 mmol/L (135-145); eGFR > 60.00
[2024-05-17] MEDS: TYLENOL 1000 MG PO ×2 (09:56→21:22)
--- NOTE | 2024-05-17 10:56 | W.PN.HOSP.TC ---
Addendum entered and electronically signed by Ubaldo Suero MD 05/17/24 12:30:
History of hyponatremia currently normal
Original Note:
Today's Communication/Plan
-
Wean oxygen as tolerated
Consider down titration of steroids
Continue bronchodilators
oob/ambulate
Assessment / Plan
Assessment / Plan
Acute hypoxic respiratory insufficiency
Shortness of breath likely secondary due to COPD exacerbation
-h/o tobacco abuse disorder
-Did not qualify for home O2 during previous hospitalization.
-CT chest was negative for pulmonary embolism. Moderate central lobar emphysema. There is a tentative bandlike area of point, space disease extending from the right infrahilar region to posterior pleural surface, new when compared to previous
examination which may be pneumonia or atelectasis or scarring which is developed in the interval since the prior study compared to 12/2021.
-Status post 10 milligram of IV Decadron. Start patient on 6 every 12 in the morning
-Continue with bronchodilators
-Awaiting sputum sample
-Troponin was checked was negative x 3. No PND orthopnea. No chest pain. WBC within normal limits. Afebrile.
-Pulmonary recommended outpatient repeat CT down the line.
-Home O2 eval prior to discharge.
-IS and flutter vavle.
-Pulmonary eval
Depression
-States has been compliant with Lexapro.
Hypokalemia
-replete/monitor
Chronic alcoholic cirrhosis: EtOH cessation.
Essential HTN: cont Norvasc
h/o Fusiform infrarenal abdominal aortic aneurysm 4.2 cm per abdomen ultrasound 01/04/2023
Hyperlipidemia
Hypothyroidism: cont Levoxyl
h/o Parathyroid adenoma with parathyroidectomy
Obesity due to excess calories: Encourage weight loss. Affects all aspects of care.
Osteoporosis with h/o fxs
Mild hyponatremia monitor
DVT ppx-lovenox
DNR/DNI
Anticipated Discharge: 24 - 48 hours
Subjective/Interval History
-
Date of Service: May 17, 2024
States improvement in breathing
States overnight her O2 sats were increased.
Objective Data
-
Labs:
Laboratory Results
05/17/24
07:32
Sodium 138
Potassium 4.4
Chloride 101
Carbon Dioxide 26
BUN 21 H
Creatinine 0.8
Glucose 121 H
Calcium 9.7
Vital Signs:
Vital Signs
Temp Pulse Resp BP Pulse Ox
97.7 F 73 24 138/61 94
05/17/24 08:00 05/17/24 08:00 05/17/24 08:00 05/17/24 08:00 05/17/24 08:00
I&O
05/16/24 05/17/24 05/18/24
06:59 06:59 06:59
Intake Total 420 / 420 480 / 480
Balance 420 / 420 480 / 480
[2024-05-17 12:00] VITALS: BP 127/62
--- NOTE | 2024-05-17 12:04 | PN.CDI ---
CDI
- -
CDI:
Physician Documentation Request
Admit Date: 05/15/24 16:01
Dear Doctor Pio,
Please review the following and provide your response in the progress notes.
Clinical Indicators:
The diagnosis of hyponatremia was documented on 05/17 PN.
- 05/17 PN 'Mild hyponatremia monitor'
- Sodium labs as follows:
Laboratory Tests
05/15/24 05/16/24 05/17/24
12:42 07:52 07:32
Sodium 135 135 138
Please clarify the following:
____ - Hyponatremia was present on admission and is now resolved.
____ - Hyponatremia was ruled out
____ - Hyponatremia is still a likely, suspected, probable diagnosis
____ - Other
Use of terms such as suspected, likely, concern for, or probable (associated with a specific diagnosis that is being evaluated, monitored, or treated as if it exists) are acceptable and can be coded in the inpatient setting, when documented at the
time of discharge.
Thank you,
Trevor Bello RN
CDI Specialist
Please use your independent medical judgment in providing your response.
--- NOTE | 2024-05-17 13:04 | CM ---
Patient seen bedside.
Continues on IV steroids.
Continue to wean oxygen.
Plan: home no needs anticipated.
[2024-05-17 16:00] VITALS: BP 109/81
[2024-05-17] MEDS: LOVENOX 40 MG SC (17:23)
[2024-05-17 19:37] VITALS: BP 115/54
[2024-05-17] MEDS: MIRALAX 17 GRAMS PO (20:12)
[2024-05-17] MEDS: DECADRON 4 MG IV (20:12)
[2024-05-17 22:57] VITALS: BP 121/55
[2024-05-18] MEDS: SYNTHROID 112 MCG PO (03:09)
[2024-05-18] MEDS: TYLENOL 1000 MG PO (03:09)
[2024-05-18 03:21] VITALS: BP 133/72
[2024-05-18 05:33] VITALS: BMI 32.6
[2024-05-18 06:00] VITALS: BMI 32.6
[2024-05-18 06:29] LABS: Blood Urea Nitrogen 25 mg/dl (7-17); Calcium 9.3 mg/dl (8.4-10.2); Carbon Dioxide 27 mmol/L (22-30); Chloride 100 mmol/L (98-107); Estimated Creatinine Clearance 52 ml/min; Glucose 134 mg/dl (70-99); Potassium 4.9 mmol/L (3.5-5.1); Sodium 137 mmol/L (135-145); eGFR > 60.00
[2024-05-18 07:00] VITALS: BP 145/64
[2024-05-18] MEDS: DUONEB 3 ML INH ×4 (07:32→19:42)
[2024-05-18] MEDS: SYMBICORT 160/4.5 MCG INHALER 2 PUFF INH ×2 (07:32→19:43)
[2024-05-18] MEDS: DECADRON 4 MG IV ×2 (08:22→19:39)
[2024-05-18] MEDS: ASPIR LOW (ENTERIC COATED) 81 MG PO (08:23)
[2024-05-18] MEDS: NORVASC 5 MG PO (08:23)
[2024-05-18] MEDS: LEXAPRO 20 MG PO (08:24)
[2024-05-18] MEDS: DEMADEX 10 MG PO (08:24)
[2024-05-18] MEDS: VITAMIN B-12 500 MCG PO (08:24)
--- NOTE | 2024-05-18 09:55 | W.PN.PUL3 ---
Today's Communication / Plan
-
Continue with systemic steroids � on 05/17 I weaned down Decadron to 4 mg IV q12hr from 6mg IV q12hr --> tomorrow will start slow prednisone taper starting at 50mg and reducing by 10mg every 6th day until off
DuoNebs QID + Symbicort 160mcg
Transition back to Spiriva 2.5mcg/act tomorrow, and DC home on Trelegy
Up OOB as tolerated
Encourage IS use, 10x per hour for at least 4 hours a day
NOX study overnight on room air to assess O2 needs
Suspect she will be ready for discharge by tomorrow with prolonged prednisone taper with outpatient follow up with our office
Assessment
-
Assessment: 83-year-old female with a past medical history of moderate COPD, breast MALToma, immunoglobulin deficiency (low IgM, normal IgG), who presents with SOB x 5 days. Patient recommended come to the hospital via her PCP. No chest pain
reported. She uses Trelegy at home and is compliant. In the ER she was saturating 92% on room air, afebrile to 98.3 �F, pulse rate 80, breathing at 30 breaths/min and BP 141/68. Labs showed leukopenia to 3.9, troponin negative at <0.012, and flu
A/B swab was negative. CXR showed no acute disease of the chest, and a CT of the chest was performed showing no acute PE with moderate emphysematous changes and an 8 cm bandlike parenchymal opacity seen in the posterior RLL which is due to either
pneumonia versus atelectasis. She was given Decadron and DuoNebs in the ER, admitted to the hospitalist service and pulmonary service consulted for additional management/recommendations.
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
mild�moderate MR, and trace TR, COPD, former tobacco use disorder (quit 1998), allergic rhinitis, obesity, osteopenia with history of osteoporosis treated with Boniva, depression, BPPV (2012), history of RML pneumonia (2016), right rib fractures and
lung contusion s/p fall c/b traumatic pneumothorax, personal history of COVID-19 (09/2022)
Impression:
#Acute COPD exacerbation
#Posterior right lower lobe bandlike consolidative opacity � likely due to rounded atelectasis vs scar vs pneumonia - this is new compared to prior RLL lung base seen on CT A/P from 12/2019
#Moderate COPD due to paraseptal/centrilobular emphysema
#Former tobacco use disorder (quit 1998)
#History of osteoporosis s/p Boniva now with osteopenia
#Hepatic cirrhosis c/b poHTN
#Lymphopenia with a history of MGUS
#History of valvular heart disease
Plan:
- Continue treatment with suspected COPD exacerbation with Decadron � wean as tolerated --> on 05/17 I weaned down to 4mg IV q12hr from 6 mg IV q12hr
- Tomorrow I will start with prednisone taper starting at 50mg and reducing by 10mg every 6th day until off
- Now that she has been in the hospital for second time in 1 month for COPD exacerbation, would consider starting her on Zithromax TIW for refractory COPD (QTc: 492ms on EKG from 05/15/2024) - this can be discussed in the office
- Unclear if this posterior RLL consolidative opacity with bandlike linear scarring attached to it is a pneumonia +/- scar or just rounded atelectasis - considering the radiographic findings with a subpleural mass with a comet tail and associated
pleural thickening, as well as the patient not having any clinical signs of bacterial pneumonia, I am highly confident this is rounded atelectasis and no biopsy is needed at this time, and I will order repeat CT chest in about 6-8 weeks to assure
this is stable. Because of this, hold off on Abx unless pt spikes fever or deteriorates
- Continue with maintenance inhaler with Symbicort 160mcg + DuoNebs QID
- prn nebulized bronchodilators
- As she gets closer to discharge, stop standing DuoNebs then changed to Spiriva respimat 2.5mcg
- Maintain SpO2 >88-94% with supplemental O2 as needed
- Check O2 home assessment prior to discharge
- NOX study tonight on room air
- Incentive spirometer encouraged
- mucolytics prn + flutter valve
- Replete electrolytes with K>4, Mg>2
- Maintain euglycemia with goal BG >100 and <180
- DVT ppx
Pulmonary service will continue to follow along. Patient will follow-up with our office following discharge - Last office visit on 10/07/[address] Martinez.
Total time spent today was 35 minutes for this encounter. Time includes reviewing laboratory test/imaging results, reviewing pertinent medical records, obtaining and reviewing medical history, performing an appropriate exam, ordering medications,
tests and procedures. Time also includes documentation of this encounter, coordinating patient care and communicating with other healthcare professionals. Total time does not include separately billed tests performed on this date of service.
Data:
CTA Chest 05-15-2024:
1). There is no pulmonary embolism
2).There is a 8 cm bandlike area of parenchymal airspace disease extending from the right infrahilar region to the posterior pleural surface, new when compared with the previous examination which may be pneumonia or atelectasis or scarring which has
developed in the interval since the prior study
3). Moderate centrilobular emphysema
Subjective Data
-
Date of Service:
Date of Service: May 18, 2024
Chief Complaint: Pulmonary Follow Up
Subjective:
Patient seen and evaluated today at bedside. Afebrile overnight. She was walking around her room in no acute distress on room air. She is pulling about 1 L from her incentive spirometer. She wore 1 L/min nasal cannula overnight during sleep.
She denies chest pain, headache, fevers or chills.
Review of Systems
General: Other (Negative unless mentioned above)
Objective Data
Data Reviewed
Vital Signs / I&O / Oxygen:
Vital Signs
Temp Pulse Resp BP Pulse Ox
97.8 F 72 16 140/76 92
05/18/24 11:00 05/18/24 11:23 05/18/24 11:23 05/18/24 11:00 05/18/24 11:00
Intake and Output
05/17/24 05/18/24 05/19/24
06:59 06:59 06:59
Intake Total 480 / 480
Balance 480 / 480
SaO2 92
Nasal Cannula flow liters per 1
minute
Physical Exam
General: Respiratory Distress (Negative) and Comfortable
HEENT: Normocephalic and Anicteric
Cardiovascular: S1-S2 and Peripheral Edema (Negative)
Respiratory: Clear, Wheeze (Expiratory wheeze heard bilaterally in the lower lobes-middle lung randolph), Crackles (Negative), Rhonchi (Negative) and Other (Reduced breath sounds bilaterally)
GI: Soft, Distended (Abdominal obesity), Non Tender and Normal Bowel Sounds
Neurology: Awake, Alert and Tremors (Negative)
Skin: Warm, Dry and Jaundice (Negative)
Labs/Micro/Reports
Lab Data
05/15/24 12:41
05/18/24 04:56
[2024-05-18 11:00] VITALS: BP 140/76
--- NOTE | 2024-05-18 11:48 | CM ---
Patient seen bedside.
Sitting in chair.
Off oxygen.
Continues IV steroids.
Plan: home no needs when stable.
--- NOTE | 2024-05-18 11:55 | W.PN.HOSP.TC ---
Today's Communication/Plan
-
wean steroids in am?
start dispo
pulm recs
Assessment / Plan
Assessment / Plan
Acute hypoxic respiratory insufficiency
Shortness of breath likely secondary due to COPD exacerbation
-h/o tobacco abuse disorder
-Did not qualify for home O2 during previous hospitalization.
-CT chest was negative for pulmonary embolism. Moderate central lobar emphysema. There is a tentative bandlike area of point, space disease extending from the right infrahilar region to posterior pleural surface, new when compared to previous
examination which may be pneumonia or atelectasis or scarring which is developed in the interval since the prior study compared to 12/2021.
-Status post 10 milligram of IV Decadron. Decreased to 4mg IV q12h. Prolonged po prednisone taper on dc.
-Continue with bronchodilators
-Awaiting sputum sample
-Troponin was checked was negative x 3. No PND orthopnea. No chest pain. WBC within normal limits. Afebrile.
-Pulmonary recommended outpatient repeat CT down the line.
-Home O2 eval prior to discharge.
-IS and flutter vavle.
-Pulmonary eval
Depression
-States has been compliant with Lexapro.
Hypokalemia
-replete/monitor
Chronic alcoholic cirrhosis: EtOH cessation.
Essential HTN: cont Norvasc
h/o Fusiform infrarenal abdominal aortic aneurysm 4.2 cm per abdomen ultrasound 01/04/2023
Hyperlipidemia
Hypothyroidism: cont Levoxyl
h/o Parathyroid adenoma with parathyroidectomy
Obesity due to excess calories: Encourage weight loss. Affects all aspects of care.
Osteoporosis with h/o fxs
DVT ppx-lovenox
DNR/DNI
Anticipated Discharge: Within 24 hours
Subjective/Interval History
-
Date of Service: May 18, 2024
states breathing has improved
Objective Data
-
Labs:
Laboratory Results
05/18/24
04:56
Sodium 137
Potassium 4.9
Chloride 100
Carbon Dioxide 27
BUN 25 H
Creatinine 0.8
Glucose 134 H
Calcium 9.3
Vital Signs:
Vital Signs
Temp Pulse Resp BP Pulse Ox
97.8 F 72 16 140/76 92
05/18/24 11:00 05/18/24 11:23 05/18/24 11:23 05/18/24 11:00 05/18/24 11:00
I&O
05/17/24 05/18/24 05/19/24
06:59 06:59 06:59
Intake Total 480 / 480
Balance 480 / 480
Physical Exam
-
General: Well Developed and No Apparent Distress
HEENT: Normocephalic, Atraumatic, Moist Mucous Membranes and Oxygen
Respiratory: Other (Decreased aeration); Negative Wheezes or Rales
Cardiac: Regular Rhythm and S1/S2; Negative Murmur, Rub or Gallop
GI: Soft, Nontender, Nondistended and Normal Bowel Sounds; Negative Organomegaly
Rectal: Deferred by Provider
Musculoskeletal: No Clubbing, No Cyanosis and No Edema
Skin: Negative Rash
Neuro: Awake and Nonfocal/Grossly Intact
Psych: Calm
[2024-05-18 15:00] VITALS: BP 125/56
[2024-05-18] MEDS: LOVENOX 40 MG SC (17:19)
[2024-05-18] MEDS: MIRALAX 17 GRAMS PO (19:39)
[2024-05-18 19:52] VITALS: BP 140/59
[2024-05-18 23:36] VITALS: BP 133/68
[2024-05-19 01:20] VITALS: BMI 32.6
[2024-05-19 03:17] VITALS: BP 128/76
[2024-05-19] MEDS: SYNTHROID 112 MCG PO (05:20)
[2024-05-19 07:00] VITALS: BP 134/87
[2024-05-19] MEDS: SYMBICORT 160/4.5 MCG INHALER 2 PUFF INH (07:35)
[2024-05-19] MEDS: DUONEB 3 ML INH ×3 (07:35→15:15)
[2024-05-19] MEDS: ASPIR LOW (ENTERIC COATED) 81 MG PO (07:54)
[2024-05-19] MEDS: NORVASC 5 MG PO (07:54)
[2024-05-19] MEDS: DELTASONE 50 MG PO (07:54)
[2024-05-19] MEDS: DEMADEX 10 MG PO (07:55)
[2024-05-19] MEDS: VITAMIN B-12 500 MCG PO (07:55)
[2024-05-19] MEDS: LEXAPRO 20 MG PO (07:56)
[2024-05-19] MEDS: COLACE 100 MG PO (07:56)
[2024-05-19 08:26] VITALS: BP 134/87
--- NOTE | 2024-05-19 09:19 | W.PN.PUL3 ---
Today's Communication / Plan
-
Continue with systemic steroids � on 05/17 I weaned down Decadron to 4 mg IV q12hr from 6mg IV q12hr --> today I will start slow prednisone taper starting at 50mg and reducing by 10mg every 6th day until off
stop DuoNebs and resume her home medication, spiriva; continue Symbicort 160mcg; DC back on her Trelegy
Up OOB as tolerated
Encourage IS use, 10x per hour for at least 4 hours a day
I will discuss performing a NOX study in the office with her
Supplemental oxygen to be given on discharge as she requires 2 L/min with activity, room air at rest.
Patient is stable for discharge. I will arrange for follow-up with our office following discharge - last office visit on 10/07/[address] Martinez. Pulmonary service will now sign off. Please reconsult if there are any additional
questions/concerns, or if patient's respiratory status deteriorates.
Assessment
-
Assessment: 83-year-old female with a past medical history of moderate COPD, breast MALToma, immunoglobulin deficiency (low IgM, normal IgG), who presents with SOB x 5 days. Patient recommended come to the hospital via her PCP. No chest pain
reported. She uses Trelegy at home and is compliant. In the ER she was saturating 92% on room air, afebrile to 98.3 �F, pulse rate 80, breathing at 30 breaths/min and BP 141/68. Labs showed leukopenia to 3.9, troponin negative at <0.012, and flu
A/B swab was negative. CXR showed no acute disease of the chest, and a CT of the chest was performed showing no acute PE with moderate emphysematous changes and an 8 cm bandlike parenchymal opacity seen in the posterior RLL which is due to either
pneumonia versus atelectasis. She was given Decadron and DuoNebs in the ER, admitted to the hospitalist service and pulmonary service consulted for additional management/recommendations.
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
mild�moderate MR, and trace TR, COPD, former tobacco use disorder (quit 1998), allergic rhinitis, obesity, osteopenia with history of osteoporosis treated with Boniva, depression, BPPV (2011), history of RML pneumonia (2015), right rib fractures and
lung contusion s/p fall c/b traumatic pneumothorax, personal history of COVID-19 (09/2022)
Impression:
#Acute COPD exacerbation
#Posterior right lower lobe bandlike consolidative opacity � likely due to rounded atelectasis vs scar vs pneumonia - this is new compared to prior RLL lung base seen on CT A/P from 12/2019
#Moderate COPD due to paraseptal/centrilobular emphysema
#Former tobacco use disorder (quit 1998)
#History of osteoporosis s/p Boniva now with osteopenia
#Hepatic cirrhosis c/b poHTN
#Lymphopenia with a history of MGUS
#History of valvular heart disease
Plan:
- Continue treatment with suspected COPD exacerbation with Decadron � wean as tolerated --> on 05/17 I weaned down to 4mg IV q12hr from 6 mg IV q12hr
- Today I will start with prednisone taper starting at 50mg and reducing by 10mg every 6th day until off
- Now that she has been in the hospital for second time in 1 month for COPD exacerbation, would consider starting her on Zithromax TIW for refractory COPD (QTc: 492ms on EKG from 05/15/2024) - this can be discussed in the office
- Unclear if this posterior RLL consolidative opacity with bandlike linear scarring attached to it is a pneumonia +/- scar or just rounded atelectasis - considering the radiographic findings with a subpleural mass with a comet tail and associated
pleural thickening, as well as the patient not having any clinical signs of bacterial pneumonia, I am highly confident this is rounded atelectasis and no biopsy is needed at this time, and I will order repeat CT chest in about 6-8 weeks to assure
this is stable. Because of this, hold off on Abx unless pt spikes fever or deteriorates
- Continue with maintenance inhaler with Symbicort 160mcg + DuoNebs QID
- prn nebulized bronchodilators
- Stop standing DuoNebs and change to Spiriva respimat 2.5mcg
- Maintain SpO2 >88-94% with supplemental O2 as needed
- O2 home assessment checked today --> at rest she was 94% and then with ambulation after 100 feet she desaturated to 86%, requiring 1 L/min with saturations rising back to 92% and stayed >88% after walking 100 feet.
- Will discuss nocturnal oximetry testing in the office setting
- Incentive spirometer encouraged
- mucolytics prn + flutter valve
- Replete electrolytes with K>4, Mg>2
- Maintain euglycemia with goal BG >100 and <180
- DVT ppx
Patient is stable for discharge. I will arrange for follow-up with our office following discharge - last office visit on 10/07/[address] Martinez[address]Pulmonary service will now sign off. Thank you for allowing us to be involved in the care of this
patient. Please reconsult if there are any additional questions/concerns, or if patient's respiratory status deteriorates.
Total time spent today was 35 minutes for this encounter. Time includes reviewing laboratory test/imaging results, reviewing pertinent medical records, obtaining and reviewing medical history, performing an appropriate exam, ordering medications,
tests and procedures. Time also includes documentation of this encounter, coordinating patient care and communicating with other healthcare professionals. Total time does not include separately billed tests performed on this date of service.
Data:
CTA Chest 05-15-2024:
1). There is no pulmonary embolism
2).There is a 8 cm bandlike area of parenchymal airspace disease extending from the right infrahilar region to the posterior pleural surface, new when compared with the previous examination which may be pneumonia or atelectasis or scarring which has
developed in the interval since the prior study
3). Moderate centrilobular emphysema
Subjective Data
-
Date of Service:
Date of Service: May 19, 2024
Chief Complaint: Pulmonary Follow Up
Subjective:
Patient seen and evaluated today at bedside. She says she was on room air overnight during sleep and she woke up without any morning headache. Underwent walk study today and desaturated to 86% after 100 feet and required 1 L/min during ambulation.
She says her shortness of breath is better today. She currently denies headache, chest pain, abdominal pain, fevers or chills.
Review of Systems
General: Other (Negative unless mentioned above)
Objective Data
Data Reviewed
Vital Signs / I&O / Oxygen:
Vital Signs
Temp Pulse Resp BP Pulse Ox
97.4 F 60 16 134/87 94
05/19/24 07:00 05/19/24 07:40 05/19/24 07:40 05/19/24 07:00 05/19/24 07:40
Intake and Output
05/18/24 05/19/24 05/20/24
06:59 06:59 06:59
Intake Total 300 / 300
Balance 300 / 300
SaO2 94
Nasal Cannula flow liters per 1
minute
Physical Exam
General: Respiratory Distress (Negative) and Comfortable
HEENT: Normocephalic and Anicteric
Cardiovascular: S1-S2 and Peripheral Edema (Negative)
Respiratory: Clear, Wheeze (Negative), Crackles (Negative), Rhonchi (Negative) and Other (Reduced breath sounds bilaterally)
GI: Soft, Distended (Abdominal obesity), Non Tender and Normal Bowel Sounds
Neurology: Awake, Alert and Tremors (Negative)
Skin: Warm, Dry and Jaundice (Negative)
Labs/Micro/Reports
Lab Data
05/15/24 12:41
05/18/24 04:56
--- NOTE | 2024-05-19 10:56 | W.PN.HOSP.TC ---
Today's Communication/Plan
-
dc home
home o2 set up-CM aware
po prednisone
Assessment / Plan
Assessment / Plan
Acute hypoxic respiratory insufficiency
Shortness of breath likely secondary due to COPD exacerbation
-h/o tobacco abuse disorder
-Did not qualify for home O2 during previous hospitalization.
-CT chest was negative for pulmonary embolism. Moderate central lobar emphysema. There is a tentative bandlike area of point, space disease extending from the right infrahilar region to posterior pleural surface, new when compared to previous
examination which may be pneumonia or atelectasis or scarring which is developed in the interval since the prior study compared to 12/2021.
-Status post 10 milligram of IV Decadron. Decreased to 4mg IV q12h. Prolonged po prednisone taper on dc per pulm.
-Continue with bronchodilators
-Awaiting sputum sample
-Troponin was checked was negative x 3. No PND orthopnea. No chest pain. WBC within normal limits. Afebrile.
-Pulmonary recommended outpatient repeat CT down the line.
-Home O2 eval prior to discharge.Patient is in need of oxygen on exertion due to pulse oximetry of 94% on room air at rest; 86% on room air with exertion. Patient was placed on 1L O2 via nasal cannula with saturation of 92%. Oxygen will help to
improve hypoxemia. Patient is mobile within the home. Albuterol therapy has been discussed and is ineffective in treating hypoxemia-related symptoms. Oxygen will improve the patient's symptoms.
-IS and flutter valve.
-Pulmonary recs-OP f/u
Depression
-States has been compliant with Lexapro.
Hypokalemia
-replete/monitor
Chronic alcoholic cirrhosis: EtOH cessation.
Essential HTN: cont Norvasc
h/o Fusiform infrarenal abdominal aortic aneurysm 4.2 cm per abdomen ultrasound 01/04/2023
Hyperlipidemia
Hypothyroidism: cont Levoxyl
h/o Parathyroid adenoma with parathyroidectomy
Obesity due to excess calories: Encourage weight loss. Affects all aspects of care.
Osteoporosis with h/o fxs
DVT ppx-lovenox
DNR/DNI
d/w with pulmonary
More than 30 minutes spent in discharge including
Final examination of the patient
Summarizing hospital stay
Instructions for continuing care to all relevant caregivers
Preparation of discharge records, prescriptions, and referral forms
Total time spent (in minutes): 53
Anticipated Discharge: Today
Subjective/Interval History
-
Date of Service: May 19, 2024
States significant improvement in breathing
on room air earlier today
Objective Data
-
Vital Signs:
Vital Signs
Temp Pulse Resp BP Pulse Ox
97.4 F 60 16 134/87 94
05/19/24 07:00 05/19/24 07:40 05/19/24 07:40 05/19/24 07:00 05/19/24 07:40
I&O
05/18/24 05/19/24 05/20/24
06:59 06:59 06:59
Intake Total 300 / 300
Balance 300 / 300
Physical Exam
-
General: Well Developed and No Apparent Distress
HEENT: Normocephalic, Atraumatic and Moist Mucous Membranes
Respiratory: Clear to Auscultation; Negative Wheezes or Rales
Cardiac: Regular Rhythm and S1/S2; Negative Murmur, Rub or Gallop
GI: Soft, Nontender, Nondistended and Normal Bowel Sounds; Negative Organomegaly
Rectal: Deferred by Provider
Musculoskeletal: No Clubbing, No Cyanosis and No Edema
Skin: Negative Rash
Neuro: Awake, No Motor Deficits and Nonfocal/Grossly Intact
Psych: Calm
--- NOTE | 2024-05-19 11:03 | CM ---
Addendum entered by Cherie Bliss 05/19/24 12:41:
Patient denies home care needs.
Addendum entered by Cherie Bliss 05/19/24 11:31:
Oxygen options reviewed.
Oxygen ordered thru [facility]. Spoke with Junito.
Original Note:
PAtient for d/c home today.
Home oxygen assessment completed.
Oxygen required.
IMM completed.
Daughter will transport.
Plan: home with oxygen.
--- NOTE | 2024-05-19 11:17 | W.DCSUMMARY ---
Discharge Summary
Discharge Data
Date of Admission: 05/15/24
Date of Discharge: 05/19/24
-
Pending Results: No
Hospital Course
83-year-old female past medical history of osteoporosis, obesity, parathyroid adenoma status post parathyroidectomy, hypothyroidism, hyperlipidemia, fusiform infrarenal AAA, hypertension, chronic alcohol cirrhosis, depression, COPD who is presenting
with shortness of breath. Patient says she is compliant with inhalers as outpatient. Patient was started on IV Decadron and bronchodilators. Pulmonary was consulted. CT chest was negative for pulmonary embolism. Moderate central lobar emphysema.
There is a tentative bandlike area of point, space disease extending from the right infrahilar region to posterior pleural surface, new when compared to previous examination which may be pneumonia or atelectasis or scarring which is developed in
the interval since the prior study compared to 12/2021. Troponin was checked was found to be negative. Patient denied PND orthopnea lower extremity edema. Per pulmonary patient will need repeat CT chest as outpatient as the scarring is likely due
to atelectasis. IV steroids were slowly down titrated with a prolonged p.o. prednisone taper on discharge per pulmonary. Patient did qualify for home oxygenation. Patient be discharged home with outpatient pulmonary follow-up.
Discharge Plan
-
Patient Disposition: Home (Routine Discharge)
Discharge Diagnosis/Procedures: Acute hypoxic respiratory insufficiency
Acute COPD exacerbation
Hypokalemia
Condition: Fair
Diet: As tolerated
Activity: With assistance and As tolerated
Driving Restrictions: Not until seen by your Dr
Others Tests: repeat CT chest in about 6-8 weeks with pulmonary
Referrals:
Quincy Phelps Jr., [Family Provider] - in less than 1 week
Rao Trejo MD [Active] - in one to two weeks
Prescriptions:
New
prednisone 10 mg Tablet
See Rx Instructions .ROUTE .COMPLEX Qty: 88 0RF
Rx Instructions:
Take By Mouth:
50 mg daily x6 days, 40 mg daily x6 days,
30 mg daily x6 days, 20 mg daily x6 days,
10 mg daily x6 days
famotidine [Pepcid] 20 mg tablet
20 mg PO DAILY Qty: 30 0RF
Continued
amlodipine 5 MG tablet
5 mg PO Daily
aspirin 81 MG tablet,delayed release (DR/EC)
81 mg PO DAILY
levothyroxine 112 MCG tablet
112 mcg PO DAILY
torsemide 20 mg Tablet
10 mg PO DAILY
acetaminophen [Tylenol Extra Strength] 500 mg Tablet
1,000 mg PO DAILYPRN PRN (Reason: mild pain)
escitalopram oxalate 20 mg Tablet
20 mg PO DAILY
Trelegy Ellipta 200-62.5-25 mcg Blister With Device
1 inh INHALATION R DAILY
cyanocobalamin (vitamin B-12) 500 mcg Tablet,Chewable
500 mcg PO DAILY
polyethylene glycol 3350 [HealthyLax] 17 gram powder in packet
17 g PO DAILYPRN PRN (Reason: constipation)
Discharge Orders:
Discharge Patient (As Directed); Ordered 05/19/24
Ordered By: Ubaldo Suero
Discharge Date and Time
Print Language: THAI
[2024-05-19 11:46] VITALS: BP 125/62
[2024-05-19 15:13] VITALS: BP 142/66
== END 2024-05-19 16:03 | disposition home health service (06) | DRG 191 ==
LOC: 4 WEST ACU 16:01
PROVIDERS: ADMITTING PHYSICIAN Hospitalist; CONSULT PHYSICIAN Internal Medicine Critical Care Medicine; EMERGENCY PHYSICIAN Emergency Medicine; FAMILY PHYSICIAN Family Medicine
DX: J44.1 Chronic obstructive pulmonary disease with (acute) exacerbation (principal); J45.901 Unspecified asthma with (acute) exacerbation; Z87.891 Personal history of nicotine dependence; R09.02 Hypoxemia; R06.89 Other abnormalities of breathing; F32.A Depression, unspecified; E87.6 Hypokalemia; K70.30 Alcoholic cirrhosis of liver without ascites; Z66 Do not resuscitate
CPT/HCPCS: 71045; 71275; 80048; 80053; 84484; 85025; 93005; 94640; 96374; 99285; Q9967

== ENCOUNTER → 2024-06-26 10:16 | Outpatient (REF) | payer MEDICARE, BC, SELFPAY ==
[2024-06-26 11:43] LABS: % Basophils 0.5 % (0-2); % Eosinophils 2.5 % (0-6); % Immature Granulocytes 1.3 % (0-0.5); % Monocytes 11.4 % (1.7-9.3); % Neutrophils 66.3 % (42.2-75.2); Absolute Eosinophils 0.1 10^3/uL (0-0.7); Absolute Immature Granulocytes 0.1 10^3/uL (0-0.05); Absolute Lymphocytes 0.7 10^3/uL (1.2-3.4); Absolute Monocytes 0.5 10^3/uL (0.1-0.6); Absolute Neutrophils 2.6 10^3/uL (1.4-6.5); Hematocrit 36.4 % (37.0-47.0); Mean Corpuscular Volume 94.1 fL (81.0-99.0); Mean Platelet Volume 11.6 fL (7.4-10.4); Nucleated Red Blood Cells % 0 %; Platelet Count 157 10^3/uL (130-400); Red Blood Cell Count 3.87 10^6/uL (4.20-5.40); Red Cell Dist. Width 15.9 % (11.5-14.5); White Blood Cell Count 3.9 10^3/uL (4.8-10.8)
[2024-06-26 12:11] LABS: ALT (SGPT) 23 U/L (0-35); AST (SGOT) 30 U/L (14-36); Alkaline Phosphatase 103 U/L (38-126); Blood Urea Nitrogen 15 mg/dl (7-17); Calcium 9.1 mg/dl (8.4-10.2); Carbon Dioxide 30 mmol/L (22-30); Chloride 106 mmol/L (98-107); Glucose 104 mg/dl (70-99); LDH 251 U/L (120-246); Sodium 140 mmol/L (135-145); Total Bilirubin 0.6 mg/dl (0.2-1.3); Total Protein 6.4 g/dl (6.3-8.2); eGFR > 60.00
[2024-06-28 12:12] LABS: Free Kappa Light Chains,Quant 23.08 mg/L (3.30-19.40); Free Lambda Light Chains,Quant 15.59 mg/L (5.71-26.30); Kappa/Lambda Fr Light Ratio 1.48 (0.26-1.65)
== END ==
LOC: REG 10:16
PROVIDERS: ATTENDING PHYSICIAN Internal Medicine Hematology & Oncology; FAMILY PHYSICIAN Family Medicine
DX: E87.6 Hypokalemia (principal); N28.9 Disorder of kidney and ureter, unspecified; J44.9 Chronic obstructive pulmonary disease, unspecified; R06.02 Shortness of breath; C85.80 Other specified types of non-Hodgkin lymphoma, unspecified site; D47.2 Monoclonal gammopathy; C88.4 Extranodal marginal zone B-cell lymphoma of mucosa-associated lymphoid tissue [MALT-lymphoma]; K74.69 Other cirrhosis of liver
CPT/HCPCS: 36415; 80053; 83521; 83615; 85025

== ENCOUNTER → 2024-07-22 08:01 | Outpatient (REF) | payer MEDICARE, BC, SELFPAY | LOC: WDC 08:01 | PROVIDERS: ATTENDING PHYSICIAN Family Medicine | DX: C85.80 Other specified types of non-Hodgkin lymphoma, unspecified site (principal); Z12.31 Encounter for screening mammogram for malignant neoplasm of breast | CPT/HCPCS: 77063; 77067 ==

== ENCOUNTER → 2024-08-04 06:21 | Outpatient (REF) | payer MEDICARE, BC, SELFPAY | LOC: RAD 06:21 | PROVIDERS: ATTENDING PHYSICIAN Family Medicine | DX: K70.30 Alcoholic cirrhosis of liver without ascites (principal); K76.6 Portal hypertension; I71.43 Infrarenal abdominal aortic aneurysm, without rupture | CPT/HCPCS: 76770 ==

== ENCOUNTER → 2024-08-21 07:02 | Outpatient (REF) | payer MEDICARE, BC, SELFPAY | LOC: RAD 07:02 | PROVIDERS: ATTENDING PHYSICIAN Internal Medicine Critical Care Medicine; FAMILY PHYSICIAN Family Medicine | DX: J44.9 Chronic obstructive pulmonary disease, unspecified (principal) | CPT/HCPCS: 71250 ==

== ENCOUNTER 2025-02-09 13:32 | Emergency (ER) | payer MEDICARE, BC, SELFPAY ==
[2025-02-09 13:37] VITALS: BP 133/77
[2025-02-09 14:00] LABS: % Basophils 0.4 % (0-2); % Eosinophils 0.1 % (0-6); % Immature Granulocytes 1.4 % (0-0.5); % Lymphocytes 5.1 % (20.5-51.1); % Monocytes 5.8 % (1.7-9.3); % Neutrophils 87.2 % (42.2-75.2); Absolute Immature Granulocytes 0.1 10^3/uL (0-0.05); Absolute Lymphocytes 0.5 10^3/uL (1.2-3.4); Absolute Monocytes 0.6 10^3/uL (0.1-0.6); Absolute Neutrophils 8.3 10^3/uL (1.4-6.5); Hematocrit 44.4 % (37.0-47.0); Hemoglobin 15.4 g/dL (12.0-16.0); Mean Corp Hgb Conc. 34.7 g/dL (33.0-37.0); Mean Corpuscular Volume 89.3 fL (81.0-99.0); Mean Platelet Volume 12.4 fL (7.4-10.4); Nucleated Red Blood Cells % 0 %; Platelet Count 193 10^3/uL (130-400); Red Blood Cell Count 4.97 10^6/uL (4.20-5.40); Red Cell Dist. Width 14.5 % (11.5-14.5); White Blood Cell Count 9.5 10^3/uL (4.8-10.8)
[2025-02-09 14:15] LABS: ALT (SGPT) 68 U/L (0-35); AST (SGOT) 88 U/L (14-36); Albumin 3.6 g/dl (3.5-5.0); Alkaline Phosphatase 195 U/L (38-126); Blood Urea Nitrogen 16 mg/dl (7-17); Calcium 8.7 mg/dl (8.4-10.2); Carbon Dioxide 30 mmol/L (22-30); Chloride 90 mmol/L (98-107); Glucose 108 mg/dl (70-99); Potassium 3.5 mmol/L (3.5-5.1); Sodium 129 mmol/L (135-145); Total Bilirubin 0.8 mg/dl (0.2-1.3); Total Protein 6.6 g/dl (6.3-8.2); eGFR > 60.00
[2025-02-09 14:32] LABS: COVID-19 Antigen Positive (Negative)
--- NOTE | 2025-02-09 17:09 | ED.GENMED ---
History of Present Illness
General
Chief Complaint: Weakness
Time Seen by Provider: 02/09/25 16:46
History of Present Illness
History of Present Illness:
84-year-old female with history of COPD, hypertension, hyperlipidemia, and CKD stage III presents to the emergency department for evaluation of generalized weakness, fatigue, and headaches for the past 7 days. Denies any coughing but did have a
fever early on in the course of illness. Has been attempting to drink but has been generally uninterested in eating. Typically ambulates without a walker but has been using a walker in her home around. No falls. No chest pain or shortness of
breath
Past History
Past History
ED Past Medical History: COPD, HTN, Hypercholesterolemia and Other (Cirrhosis)
ED Past Surgical History: Other (Noncontributory)
Social History
Tobacco: Former smoker
Alcohol: None
Drug: None
Personal:
Living: with family
Employment: Retired
Family History
Family History: Other (Noncontributory)
Review of Systems
Review of Systems
Allergies reviewed?: Yes
All Other Systems: ROS reviewed and negative except as documented in HPI and ROS
Phy Exam
Physical Exam
Physical Exam:
GEN: Well appearing, NAD, WDWN
HEENT: Oral mucosa moist, no scleral icterus
Cardiac: Regular rate and rhythm, no murmurs
Lung: No respiratory distress, no tachypnea, scant expiratory wheezes throughout all lung randolph
MSK: No gross deformity or injuries
Skin: Good color, no pallor or jaundice, no rashes
Neuro: AO x3, moves all extremities freely
Psych: Calm, cooperative
Course
Orders/Labs/Results
Orders:
Orders
02/09/25 13:51
CBC/With Diff [Complete Blood Count/With Diff] Urgent
COVID-19 Antigen Urgent
Source: Nasal Swab
Comprehensive Metabolic Panel Urgent
Influenza A+B Rapid Molecular Urgent
GILBERTO Source: Nasal Swab
Specimen Description:
02/09/25 17:09
0.9% Sodium Chloride 1000 ml [Nss] 1,000 ml IV BOLUS
Abnormal Lab Results
02/09/25
13:51
MPV 12.4 H fL
(7.4-10.4)
Abs Immat Gran (auto) 0.1 H 10^3/uL
(0-0.05)
Absolute Neuts (auto) 8.3 H 10^3/uL
(1.4-6.5)
Absolute Lymphs (auto) 0.5 L 10^3/uL
(1.2-3.4)
Immature Gran % 1.4 H %
(0-0.5)
Neutrophils % 87.2 H %
(42.2-75.2)
Lymphocytes % 5.1 L %
(20.5-51.1)
Sodium 129 L mmol/L
(135-145)
Chloride 90 L mmol/L
(98-107)
Glucose 108 H mg/dl
(70-99)
AST 88 H U/L
(14-36)
ALT 68 H U/L
(0-35)
Alkaline Phosphatase 195 H U/L
(38-126)
SARS-CoV-2 Antigen Positive A
(Negative)
02/09/25 13:51
02/09/25 13:51
Vital Signs
Initial and Last Documented VS:
Initial Vital Signs
Temp Pulse Resp BP Pulse Ox
98.3 F 91 16 133/77 95
02/09/25 13:37 02/09/25 13:37 02/09/25 13:37 02/09/25 13:37 02/09/25 13:37
Last Documented Vital Signs
Temp Pulse Resp BP Pulse Ox
98.6 F 91 16 132/66 91
02/09/25 18:00 02/09/25 13:37 02/09/25 13:37 02/09/25 19:31 02/09/25 19:31
MDM/Problems Addressed
MDM/Problems Addressed:
Fatigue likely on account of COVID-19 and mild type of natremia. Given IV fluids and food in the ED, she is suitable for discharge home
*Critical Care Note
Total Time (30-74mins, 75-104mins- exclusive of procedures): Not Applicable
ED Attending Note
-
Portions of this chart may have been created with voice recognition software.� Occasional wrong word or��sound alike� substitutions may have occurred due to the inherent limitations of voice recognition software.
Discharge Plan
Departure
Patient Disposition: Home (Routine Discharge)
Date of Disposition: 02/09/25
Time of Disposition: 19:02
Patient with high blood pressure during this ER visit?: No
Discharge Problem:
COVID-19, Acute hyponatremia
Instructions: COVID-19 - ED discharge instructions
Prescriptions:
No Action
amlodipine 5 MG tablet
5 mg PO Daily
aspirin 81 MG tablet,delayed release (DR/EC)
81 mg PO DAILY
levothyroxine 112 MCG tablet
112 mcg PO DAILY
torsemide 20 mg Tablet
10 mg PO DAILY
acetaminophen [Tylenol Extra Strength] 500 mg Tablet
1,000 mg PO DAILYPRN PRN (Reason: mild pain)
escitalopram oxalate 20 mg Tablet
20 mg PO DAILY
Trelegy Ellipta 200-62.5-25 mcg Blister With Device
1 inh INHALATION R DAILY
cyanocobalamin (vitamin B-12) 500 mcg Tablet,Chewable
500 mcg PO DAILY
polyethylene glycol 3350 [HealthyLax] 17 gram powder in packet
17 g PO DAILYPRN PRN (Reason: constipation)
prednisone 10 mg Tablet
See Rx Instructions .ROUTE .COMPLEX Qty: 88 0RF
Rx Instructions:
Take By Mouth:
50 mg daily x6 days, 40 mg daily x6 days,
30 mg daily x6 days, 20 mg daily x6 days,
10 mg daily x6 days
famotidine [Pepcid] 20 mg tablet
20 mg PO DAILY Qty: 30 0RF
Referrals:
NONE,* [Family Provider] -
Interventions
Interventions:
*Risk Screen - Suicide Last Done: 02/09/25 13:37
*General Assessment Last Done: 02/09/25 18:09
*Neglect/Abuse Screening Last Done: 02/09/25 13:37
*ED- Fall Risk Assessment Last Done: 02/09/25 18:09
*ED COVID-19 Vaccine History Last Done: 02/09/25 18:09
*Nursing Disposition Last Done: 02/09/25 19:36
ED- Cardiac Assessment Last Done: 02/09/25 18:03
ED- Neurological Assessment Last Done: 02/09/25 18:03
ED- Pulmonary Assessment Last Done: 02/09/25 18:03
Discharge Date and Time
Discharge Date/Time: 02/09/25 19:38
Print Language: MONTSERRATIAN
[2025-02-09] MEDS: NSS 1000 IV (18:01)
[2025-02-09 19:00] VITALS: BP 137/67
[2025-02-09 19:31] VITALS: BP 132/66
== END 2025-02-09 19:38 | disposition home or self-care (01) ==
LOC: EMR 13:32
PROVIDERS: Student in an Organized Health Care Education/Training Program; EMERGENCY PHYSICIAN Emergency Medicine
DX: U07.1 COVID-19 (principal); E87.1 Hypo-osmolality and hyponatremia; J44.9 Chronic obstructive pulmonary disease, unspecified; I12.9 Hypertensive chronic kidney disease with stage 1 through stage 4 chronic kidney disease, or unspecified chronic kidney disease; N18.30 Chronic kidney disease, stage 3 unspecified; E78.00 Pure hypercholesterolemia, unspecified; Z87.891 Personal history of nicotine dependence
CPT/HCPCS: 99283; 80053; 85025; 87502; 87811

== ENCOUNTER → 2025-02-28 10:39 | Outpatient (REF) | payer MEDICARE, BC, SELFPAY ==
[2025-02-28 11:19] LABS: % Basophils 0.6 % (0-2); % Eosinophils 3.3 % (0-6); % Immature Granulocytes 0.9 % (0-0.5); % Lymphocytes 17.1 % (20.5-51.1); % Monocytes 8.3 % (1.7-9.3); % Neutrophils 69.8 % (42.2-75.2); Absolute Eosinophils 0.2 10^3/uL (0-0.7); Absolute Immature Granulocytes 0.1 10^3/uL (0-0.05); Absolute Lymphocytes 0.9 10^3/uL (1.2-3.4); Absolute Monocytes 0.5 10^3/uL (0.1-0.6); Absolute Neutrophils 3.8 10^3/uL (1.4-6.5); Hematocrit 41.3 % (37.0-47.0); Hemoglobin 13.3 g/dL (12.0-16.0); Mean Corp Hgb Conc. 32.2 g/dL (33.0-37.0); Mean Corpuscular Volume 93.2 fL (81.0-99.0); Mean Platelet Volume 11.6 fL (7.4-10.4); Nucleated Red Blood Cells % 0 %; Platelet Count 162 10^3/uL (130-400); Red Blood Cell Count 4.43 10^6/uL (4.20-5.40); Red Cell Dist. Width 14.2 % (11.5-14.5); White Blood Cell Count 5.5 10^3/uL (4.8-10.8)
[2025-02-28 13:27] LABS: ALT (SGPT) 22 U/L (0-35); AST (SGOT) 34 U/L (14-36); Albumin 4.2 g/dl (3.5-5.0); Alkaline Phosphatase 162 U/L (38-126); Blood Urea Nitrogen 16 mg/dl (7-17); Calcium 9.3 mg/dl (8.4-10.2); Carbon Dioxide 29 mmol/L (22-30); Chloride 104 mmol/L (98-107); Glucose 93 mg/dl (70-99); Potassium 4.8 mmol/L (3.5-5.1); Sodium 143 mmol/L (135-145); Total Bilirubin 0.7 mg/dl (0.2-1.3); Total Protein 7.1 g/dl (6.3-8.2); eGFR > 60.00
== END ==
LOC: REG 10:39
PROVIDERS: ATTENDING PHYSICIAN Family Medicine
DX: R53.83 Other fatigue (principal); D69.6 Thrombocytopenia, unspecified; C85.80 Other specified types of non-Hodgkin lymphoma, unspecified site; D47.2 Monoclonal gammopathy; E87.1 Hypo-osmolality and hyponatremia; N28.9 Disorder of kidney and ureter, unspecified
CPT/HCPCS: 36415; 80053; 85025

== ENCOUNTER → 2025-05-19 07:50 | Outpatient (REF) | payer MEDICARE, BC, SELFPAY ==
[2025-05-19 08:43] LABS: % Basophils 0.8 % (0-2); % Eosinophils 4.5 % (0-6); % Immature Granulocytes 0.6 % (0-0.5); % Lymphocytes 21.2 % (20.5-51.1); % Monocytes 9.5 % (1.7-9.3); % Neutrophils 63.4 % (42.2-75.2); Absolute Eosinophils 0.2 10^3/uL (0-0.7); Absolute Lymphocytes 0.8 10^3/uL (1.2-3.4); Absolute Monocytes 0.3 10^3/uL (0.1-0.6); Absolute Neutrophils 2.3 10^3/uL (1.4-6.5); Hematocrit 41.9 % (37.0-47.0); Hemoglobin 13.8 g/dL (12.0-16.0); Mean Corp Hgb Conc. 32.9 g/dL (33.0-37.0); Mean Corpuscular Hgb 30.3 pg (27.0-31.0); Mean Corpuscular Volume 91.9 fL (81.0-99.0); Mean Platelet Volume 12.1 fL (7.4-10.4); Nucleated Red Blood Cells % 0 %; Platelet Count 137 10^3/uL (130-400); Red Blood Cell Count 4.56 10^6/uL (4.20-5.40); Red Cell Dist. Width 13.5 % (11.5-14.5); White Blood Cell Count 3.6 10^3/uL (4.8-10.8)
[2025-05-19 09:21] LABS: ALT (SGPT) 22 U/L (0-35); AST (SGOT) 33 U/L (14-36); Albumin 4.4 g/dl (3.5-5.0); Alkaline Phosphatase 140 U/L (38-126); Blood Urea Nitrogen 16 mg/dl (7-17); Calcium 9.2 mg/dl (8.4-10.2); Carbon Dioxide 26 mmol/L (22-30); Chloride 108 mmol/L (98-107); Glucose 112 mg/dl (70-99); HDL Cholesterol 76 mg/dl; LDL Cholesterol, Calculated 124 mg/dl; Potassium 4.8 mmol/L (3.5-5.1); Sodium 141 mmol/L (135-145); Total Bilirubin 0.5 mg/dl (0.2-1.3); Total Cholesterol 216 mg/dl (50-199); Total Protein 7.1 g/dl (6.3-8.2); Triglyceride 84 mg/dl (10-149); Very Low Density Lipoprotein 16 mg/dl (0-30); eGFR > 60.00
[2025-05-19 09:39] LABS: TSH Reflex To Free T4 3.25 uIU/ml (0.47-4.68)
[2025-05-19 12:37] LABS: Glycohemoglobin (HgbA1c) 5.1 % (4.0-5.6)
== END ==
LOC: RAD 07:50
PROVIDERS: ATTENDING PHYSICIAN Internal Medicine Critical Care Medicine; FAMILY PHYSICIAN Family Medicine
DX: R91.1 Solitary pulmonary nodule (principal); D69.6 Thrombocytopenia, unspecified; C85.80 Other specified types of non-Hodgkin lymphoma, unspecified site; D47.2 Monoclonal gammopathy; R73.03 Prediabetes; I25.10 Atherosclerotic heart disease of native coronary artery without angina pectoris; Z13.6 Encounter for screening for cardiovascular disorders; E03.9 Hypothyroidism, unspecified
CPT/HCPCS: 36415; 71250; 80053; 80061; 83036; 84443; 85025

== ENCOUNTER → 2025-09-04 07:40 | Outpatient (REF) | payer MEDICARE, BC, SELFPAY | LOC: RAD 07:40 | PROVIDERS: ATTENDING PHYSICIAN Family Medicine | DX: I71.43 Infrarenal abdominal aortic aneurysm, without rupture (principal) | CPT/HCPCS: 76770 ==

== ENCOUNTER → 2025-11-01 10:54 | Outpatient (REF) | payer MEDICARE, BC, SELFPAY | LOC: HWRAD 10:54 | PROVIDERS: ATTENDING PHYSICIAN Family Medicine | DX: M85.852 Other specified disorders of bone density and structure, left thigh (principal); Z12.31 Encounter for screening mammogram for malignant neoplasm of breast | CPT/HCPCS: 77063; 77067 ==